=== PATIENT | female | born 1960 | race Caucasian/White ===

== ENCOUNTER 2019-11-02 07:51 | Outpatient (CLI) | payer OTHER, SELFPAY ==
--- NOTE | ~2019-11-02 | US_ITS ---
EXAMINATION: US art doppler w press LE BI DATE: 11/02/2019 08:47 INDICATION: Hypertension and smoking presenting with lower limb neuropathy and foot discoloration. TECHNIQUE: Segmental pressures and plethysmographic and Doppler waveforms of the brachial and lower e xtremity arteries were obtained. COMPARISON: None. FINDINGS: Right and left brachial artery pressures of 104 mm Hg and 104 mm Hg, respectively, are concordant (no rmal difference <= 30 mmHg). The right ankle-brachial index (CLARITA) is 1.20 (normal >= 0.9-1). The right great toe-brachial index (T BI) is 0.66 (normal >= 0.6-0.8). The right lower extremity segmental pressure gradients are normal (n ormal gradients <= 20-30 mmHg between adjacent levels on the same leg or the same levels on the two l egs). Arterial waveforms are triphasic at the right superficial femoral artery and biphasic at the re maining arteries with brisk systolic upstrokes throughout. The left CLARITA is 1.27. The left TBI is 1.12. The left lower extremity segmental pressure gradients are normal. Arterial waveforms are triphasic at the left common femoral and superficial femoral arteries and biphasic in the more distal arteries with brisk systolic upstrokes throughout. IMPRESSION: 1. Normal ABIs and TBIs bilaterally. No significant occlusive disease. Reviewed, dictated and finalized at location A.
== END 2019-11-02 07:52 | disposition home or self-care (01) ==
LOC: ANHIMG 07:58
PROVIDERS: PCP Family Medicine; Visit Provider Family Medicine
DX: R09.89 Other specified symptoms and signs involving the circulatory and respiratory systems (principal)
CPT/HCPCS: 93923

== ENCOUNTER 2021-09-25 00:22 | Day surgery (SDC) | payer OTHER, SELFPAY ==
[2021-09-14 12:18] VITALS: BMI 31.5
[2021-09-25 08:26] VITALS: BP 118/74; PULSE 69; RESP 20; TEMP 35.7; O2SAT 97; BMI 30.5
[2021-09-25] MEDS: LACTATED RINGERS 1,000 ML 150 ML IV CONT (08:42)
--- NOTE | 2021-09-25 08:51 | WPDANESEPPF ---
Anes - Initial Pre Proc Eval Procedure: Operation Date: 09/25/21 09:30 Proposed Procedures p Screening Colonoscopy - Jeovany Olivera MD Date/Time: 09/25/21 08:51 Surgeon: Jeovany Olivera MD Pre Op Diagnosis: neoplasm screening Patient Data Age: 60 Gender: F Height: 1.65 m Weight: 83.3 kg Last Vital Signs Temp 96.3 F L 09/25/21 08:26 Pulse 69 09/25/21 08:26 Resp 20 09/25/21 08:26 BP 118/74 09/25/21 08:26 Pulse Ox 97 09/25/21 08:26 Allergies Allergy/AdvReac Type Severity Reaction Status Date / Time No Known Allergies Allergy Verified 09/25/21 08:25 Home Medications Medication Instructions Recorded Confirmed Type triamterene 75 1 tablet PO DAILY #90 tablet 07/31/21 09/14/21 Rx mg-hydrochlorothiazide 50 mg tablet metoprolol tartrate 100 mg tablet 100 mg PO Q12H #180 tablet 08/02/21 09/14/21 Rx rosuvastatin 20 mg tablet 20 mg PO DAILY #30 tablet 08/31/21 09/14/21 Rx duloxetine 60 mg capsule,delayed 60 mg PO DAILY #30 cap 09/05/21 09/14/21 Rx release cyclobenzaprine 10 mg PO TID 09/14/21 09/14/21 History mv,Ca,min-folic acid-vit K1 1 tablet PO DAILY 09/14/21 09/14/21 History [One-A-Day Women's 50 Plus] gabapentin 300 mg capsule 600 mg PO TID #180 cap 09/18/21 09/25/21 Rx potassium chloride 20 mEq 20 meq PO BID 14 Days #28 tablet 09/21/21 09/25/21 Rx tablet,extended release Patient hx anesthesia problems: none Family hx anesthesia problems: none Results Review: All pre-operative results and documents have been reviewed as part of the pre-operative evaluation. [facility] Past Medical History Medical History (Updated 08/30/21 @ 14:17 by Neal Humphreys NP) BMI 30.0-30.9,adult BMI greater than 30 Bronchitis Cervical spondylosis Decreased pulses in feet Elevated lipids Essential hypertension Lumbar spondylosis with myelopathy Neuropathy Screen for colon cancer Screening for lipid disorders Screening, lipid Family History Family History Father No problems noted. Mother No problems noted. Sibling No problems noted. 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 Informed Consent: The patient's anesthetic plan and its attendant risks and benefits were discussed with the patient/family/POA. Questions were solicited and answers provided to the satisfaction of the patient/family/POA.
--- NOTE | 2021-09-25 08:55 | PM.HPGS ---
History of Present Illness History of Present Illness Consent: Risks, benefits, and alternatives have been discussed and questions answered. Patient agrees to proceed with procedure. Chief complaint: neoplasm screening Narrative: Mima Root is a 60 year old female here for first screening colonoscopy Review of Systems Constitutional: Constitutional: Denies headache(s) and Denies weakness Eyes: Eyes: Denies blurry vision ENT: Reports Normal hearing present, Denies headache(s) and Denies neck pain Cardiovascular: Cardiovascular: Denies chest pain and Denies dyspnea Respiratory: Respiratory: Denies dyspnea Gastrointestinal: Gastrointestinal: Reports no additional gastrointestinal complaints Genitourinary: Genitourinary: Denies dysuria Musculoskeletal: Musculoskeletal: Denies neck pain Integumentary/Breasts: Skin/Breast: Denies dry skin Neurologic: Reports Normal hearing present, Denies headache(s) and Denies weakness Psychiatric: Psychiatric: Denies anxiety Endocrine: Endocrine: Denies change in body appearance Hematologic/Lymphatic: Hematologic/Lymphatic: Denies easy bleeding Allergic/Immunologic: Allergic/Immunologic: Denies urticaria [facility] Past Medical History Medical History (Updated 08/30/21 @ 14:17 by Neal Humphreys NP) BMI 30.0-30.9,adult BMI greater than 30 Bronchitis Cervical spondylosis Decreased pulses in feet Elevated lipids Essential hypertension Lumbar spondylosis with myelopathy Neuropathy Screen for colon cancer Screening for lipid disorders Screening, lipid Family History Family History Father No problems noted. Mother No problems noted. Sibling No problems noted. 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 Gender identity (if verbalized by the patient): Female Spiritual care concerns: No Meds Home Medications and Allergies Home Medications Medication Instructions Recorded Confirmed Type triamterene 75 1 tablet PO DAILY #90 tablet 07/31/21 09/14/21 Rx mg-hydrochlorothiazide 50 mg tablet metoprolol tartrate 100 mg tablet 100 mg PO Q12H #180 tablet 08/02/21 09/14/21 Rx rosuvastatin 20 mg tablet 20 mg PO DAILY #30 tablet 08/31/21 09/14/21 Rx duloxetine 60 mg capsule,delayed 60 mg PO DAILY #30 cap 09/05/21 09/14/21 Rx release cyclobenzaprine 10 mg PO TID 09/14/21 09/14/21 History mv,Ca,min-folic acid-vit K1 1 tablet PO DAILY 09/14/21 09/14/21 History [One-A-Day Women's 50 Plus] gabapentin 300 mg capsule 600 mg PO TID #180 cap 09/18/21 09/25/21 Rx potassium chloride 20 mEq 20 meq PO BID 14 Days #28 tablet 09/21/21 09/25/21 Rx tablet,extended release Allergies Allergy/AdvReac Type Severity Reaction Status Date / Time No Known Allergies Allergy Verified 09/25/21 08:25 Vital Signs Vital Signs - 24 hr 09/25/21 08:26 Temperature 96.3 F L Pulse Rate 69 Respiratory Rate 20 Blood Pressure 118/74 Pulse Oximetry 97 Exam Const: General: comfortable and no acute distress HENMT: General nose exam: Normal nares present Eyes: General: appearance normal, both eyes and all related structures Neck: Neck: no JVD Resp: Auscultation: clear to auscultation bilaterally Cardio: Rate: regular rate Rhythm: regular rhythm GI: Inspection: non-distended GI Palp: Yes Soft to palpation Skin: General skin exam: normal color Neuro: General: gait normal Speech: normal speech Extrem: General: norm
[2021-09-25 09:13] VITALS: BP 116/62; PULSE 62; RESP 21; O2SAT 94
[2021-09-25 09:23] VITALS: BP 107/77; PULSE 62; RESP 24; O2SAT 97
[2021-09-25 09:33] VITALS: BP 120/65; PULSE 59; RESP 21; O2SAT 97
== END 2021-09-25 09:43 | disposition home or self-care (01) ==
PROVIDERS: PCP Family Medicine; Visit Provider Internal Medicine Gastroenterology
PROC: 0DJD8ZZ Inspection of Lower Intestinal Tract, Via Natural or Artificial Opening Endoscopic (ICD-10-PCS; CPT 45378; principal; 2021-09-25 09:30)
DX: Z12.11 Encounter for screening for malignant neoplasm of colon (principal); K57.30 Diverticulosis of large intestine without perforation or abscess without bleeding; K64.8 Other hemorrhoids; K64.4 Residual hemorrhoidal skin tags; I10 Essential (primary) hypertension; E78.5 Hyperlipidemia, unspecified; F17.210 Nicotine dependence, cigarettes, uncomplicated; E66.9 Obesity, unspecified; Z68.30 Body mass index [BMI] 30.0-30.9, adult
CPT/HCPCS: 45378; J2704; J7120

== ENCOUNTER 2023-02-11 11:04 | Outpatient (CLI) | payer OTHER, SELFPAY ==
--- NOTE | ~2023-02-11 | MR_ITS ---
EXAMINATION: MR brain/brain stem wo con DATE: 02/11/2023 12:05 INDICATION: Polyneuropathy, unspecified. TECHNIQUE: Magnetic resonance imaging (MRI) of the brain and brainstem was performed without intraven ous contrast. COMPARISON: None. FINDINGS: The pituitary is enlarged with height of 16 mm. There is a 13 mm mass of increased T2-weigh florecita signal intensity in the pituitary. There are scattered areas of nonspecific increased T2-weighted signal intensity in the cerebral white matter and zeina, which is within normal limits for the patien t's age. There is no acute ischemic infarct or intracranial hemorrhage. The ventricles are normal in size. The orbits are normal. The mastoid air cells are normal. The paranasal sinuses are clear. IMPRESSION: 1. 13 mm pituitary mass. The differential diagnosis includes pituitary macroadenoma, Rathke cleft cys t, and craniopharyngioma. Brain MRI without and with contrast is recommended. Reviewed, dictated and finalized at location E. IMPRESSION: 1. 13 mm pituitary mass. The differential diagnosis includes pituitary macroade noma, Rathke cleft cyst, and craniopharyngioma. Brain MRI without and with cont rast is recommended.
--- NOTE | ~2023-02-11 | MR_ITS ---
EXAMINATION: MR cervical spine wo con DATE: 02/11/2023 12:05 INDICATION: Cervical spondylosis without myelopathy or radiculopathy. TECHNIQUE: Magnetic resonance imaging (MRI) of the cervical spine was performed without intravenous c ontrast. COMPARISON: None FINDINGS: There is kyphosis of cervical spine. Vertebral body heights are normal. There is mildly dec reased disc height at C3-C4, moderately decreased disc height at C4-C5 and C5-C6, and mildly decrease d disc height at C6-C7. The spinal cord signal intensity is normal. The following disc levels are spe cifically discussed: C2-C3: The disc does not extend beyond the endplate margin. There is mild left uncovertebral joint os teoarthritis. There is moderate right and severe left facet joint osteoarthritis. There is mild left neural foraminal stenosis. There is no central canal stenosis. C3-C4: There is a central extrusion. There is mild bilateral uncovertebral joint osteoarthritis. Ther e is moderate right and severe left facet joint osteoarthritis. There is mild bilateral neural forami nal stenosis. There is mild central canal stenosis. C4-C5: The disc is bulging. There is severe bilateral uncovertebral joint osteoarthritis. There is mo derate bilateral facet joint osteoarthritis. There is severe right and mild left neural foraminal raquel nosis. There is moderate central canal stenosis with ventral and dorsal indentation of the spinal cor d. C5-C6: The disc is bulging. There is severe bilateral uncovertebral joint osteoarthritis. There is mo derate right and mild left facet joint osteoarthritis. There is moderate bilateral neural foraminal s tenosis. There is moderate central canal stenosis with ventral and dorsal indentation of the spinal c ord. C6-C7: This is bulging. There is severe bilateral uncovertebral joint osteoarthritis. There is mild b ilateral facet joint osteoarthritis. There is mild bilateral neural foraminal stenosis. There is mild central canal stenosis. C7-T1: The disc does not extend beyond the endplate margin. There is mild left uncovertebral joint os teoarthritis. There is mild right and severe left facet joint osteoarthritis. There is mild left neur al foraminal stenosis. There is no central canal stenosis. IMPRESSION: 1. Severe cervical spondylosis. Reviewed, dictated and finalized at location E.
== END 2023-02-11 11:05 ==
PROVIDERS: PCP Family Medicine; Visit Provider Family Medicine
DX: G62.9 Polyneuropathy, unspecified (principal); M47.812 Spondylosis without myelopathy or radiculopathy, cervical region; R29.818 Other symptoms and signs involving the nervous system; R29.898 Other symptoms and signs involving the musculoskeletal system
CPT/HCPCS: 70551; 72141

== ENCOUNTER 2023-02-19 14:40 | Outpatient (CLI) | payer OTHER, SELFPAY ==
--- NOTE | ~2023-02-19 | MR_ITS ---
MRI of the brain Clinical History: Pituitary mass Technique: Axial and sagittal T1-weighted images were acquired. These were followed by axial T2-weigh florecita, diffusion weighted, gradient, and FLAIR images. Thin cut coronal and sagittal T1-weighted images were performed through the sella turcica. Following intravenous administration of 15 cc MultiHance g adolinium, T1-weighted fat-sat imaging was performed through the brain in the axial plane. Dynamic th in cut T1-weighted postcontrast coronal imaging was performed through the sella turcica. COMPARISON: 02/11/2023 Findings: There is no acute infarct or intracranial hemorrhage. Ventricles and subarachnoid spaces ar e unremarkable. Orbits are unremarkable. Paranasal sinuses and mastoid air cells are clear. Major intracranial flow v oids are intact. There is a 1.5 x 1.4 x 1.6 cm mass centered at the right side of the pituitary gland, with heterogene ous postcontrast enhancement, T2 hyperintensity, and T1 hypointensity. No mass effect upon the optic chiasm. Sagittal midline structures are otherwise unremarkable. IMPRESSION: 1.5 x 1.4 x 1.6 cm pituitary mass, as detailed above, most compatible with pituitary macroadenoma. Reviewed, dictated and finalized at location M. IMPRESSION: 1.5 x 1.4 x 1.6 cm pituitary mass, as detailed above, most compatible with pitu itary macroadenoma.
== END 2023-02-19 14:41 | disposition home or self-care (01) ==
PROVIDERS: PCP Family Medicine; Visit Provider Family Medicine
DX: E23.6 Other disorders of pituitary gland (principal)
CPT/HCPCS: 70553; A9577

== ENCOUNTER 2023-05-15 08:28 | Outpatient (CLI) | payer OTHER, SELFPAY ==
--- NOTE | 2023-05-15 08:40 | ECG_ITS ---
Measurements Intervals [place] Rate: 63 P: 63 LA: 155 QRS: 3 QRSD: 86 T: 25 QT: 399 QTc: 410 Interpretive Statements SINUS RHYTHM ATRIAL PREMATURE COMPLEXES BASELINE ARTIFACT- I, III, AVR, AVL, V6 BORDERLINE ECG NO PREVIOUS ECG AVAILABLE FOR COMPARISON Electronically Signed On 05-15-2023 9:54:26 BOOK JACKET COVER MACHINE OPERATOR by Navjot yS D.O.
[2023-05-15 09:48] LABS: Hematocrit 42.4 % (37.0-47.0); Hemoglobin 13.7 g/dL (12.0-15.0); Mean Corpuscular HGB Conc 32.3 g/dl (32-36); Mean Platelet Volume 10.2 fl (7.4-10.4); Platelet Count Result 327 k/mm3 (150-375); Red Blood Count 4.56 M/mm3 (4.2-5.4); Red Cell Distribution Width 13.7 % (11.5-14.5); White Blood Count 10.4 K/mm3 (4.5-10.0)
[2023-05-15 09:55] LABS: INR 0.9; Prothrombin Time 12.8 Seconds (11.1-14.7)
[2023-05-15 09:56] LABS: Partial Thromboplastin Time 30.9 SECONDS (22.3-36.8)
[2023-05-15 09:59] LABS: Anion Gap 7 mmol/L (8-16); Blood Urea Nitrogen 18 mg/dL (7-17); Calcium 9.3 mg/dL (8.4-10.2); Carbon Dioxide 33 mmol/L (22-30); Chloride 102 mmol/L (98-107); Estimated Glomerular Filt Rate > 60; Glucose 88 mg/dL (65-110); Potassium 3.2 mmol/L (3.4-5.0); Sodium 142 mmol/L (137-145)
[2023-05-15 10:01] LABS: Appearance Urine Cloudy (Clear); Bacteria Urine 2+ /hpf; Bilirubin Urine Negative (Negative); Blood Urine Negative (Negative); Calcium Oxalate Crystals Urine Present /hpf; Color Urine Dark Yellow (Yellow); Glucose Urine UA Negative (Negative); Ketones Urine Negative (Negative); Leukocyte Esterase Ur Negative LEU/UL (Negative); Nitrate Urine Negative (Negative); Non Pathogenic Casts 0-2; Protein Urine Negative (Negative); Squamous Epithelial Cell Urine Few /hpf (Few); Urobilinogen Urine 0.2 mg/dL (<2.0); WBC Urine 0-5 /hpf; pH Urine 5.5 (5.0-9.0)
[2023-05-15 10:07] LABS: RBC Urine 0-2 /hpf (0-2); Specific Grav Ur 1.038 (1.001-1.035)
[2023-05-15 10:08] LABS: Add Urine Microscopic? YES
== END 2023-05-15 08:29 | disposition home or self-care (01) ==
LOC: ANHSURGERY 08:32
PROVIDERS: PCP Family Medicine; Visit Provider Neurological Surgery
DX: M47.812 Spondylosis without myelopathy or radiculopathy, cervical region (principal); I10 Essential (primary) hypertension; Z01.818 Encounter for other preprocedural examination
CPT/HCPCS: 36415; 80048; 81001; 85027; 85610; 85730; 86850; 86900; 86901; 93005

== ENCOUNTER 2023-05-22 01:47 | Day surgery (SDC) | payer OTHER, SELFPAY ==
[2023-05-10 10:19] VITALS: BMI 33.8
--- NOTE | 2023-05-10 10:29 | PC.NURSE ---
Report to the Outpatient Waiting Room, entrance under the green pavilion located off [facility], at time 8:30 on date 05/22/23. Planned Procedure Time: 10:30. Time changes happen often and if your time is changed the preop area will call you the afternoon before. - You and your visitor will be asked to self-screen and do not enter if you have any COVID symptoms. - A mask is optional within the hospital at this time. Patients may have clear liquids (water, carbonated beverages, clear teas, apple juice) until 3 hours prior to surgery (7:30) with a maximum of 20 ounces. - No food from midnight until time of surgery Take the following medications with a SIP of water the morning of surgery: DULOXETINE, METOPROLOL, LYRICA DO NOT STOP ANY OF YOUR OTHER PRESCRIPTION MEDICATIONS PRIOR TO SURGERY ?EXCEPT THE FOLLOWING Medications to discontinue per physician: VITAMINS Date to take last dose: 05/18/23 Please no make-up, nail belizean, hairspray, perfume, deodorant, or body powder the day of surgery. No jewelry (including any body piercings) or valuables the day of surgery, leave them at home. Please take a shower or bath the night before, or the morning of, surgery with an antibacterial soap. Wear comfortable, loose fitting clothing. - Jewelry must be removed prior to entering the operating room. Rings and piercings that are not removed may be cut off. - The hospital will not accept responsibility for valuables. - Please leave all valuables, including medications, at home the day of surgery. If you are going home after surgery, a licensed auto [place]ulaway driver must drive you home. - NO public transportation without another adult if you receive anesthesia. - We recommend that an adult stay with you for 24 hours following discharge. - We also recommend that you do not drive, make important decision, drink alcoholic beverages, or take any drugs that were not prescribed by your health care provider for at least 24 hours after your discharge time. Follow any additional instructions given to you from your surgeon. If you or anyone in your household have experienced Covid symptoms in the past week, please notify your surgeon or the nurse liaison at the phone number below for possible testing. Telephone instructions given to PT - SALAZAR CHAIDEZ and asked if any additional questions and then verbalized understanding. Patient advised to call surgeon office or pre surgery nurse liaison [phone] if any additional questions.
[2023-05-22] VITALS (20 sets, daily range): BP systolic 98–139; BP diastolic 56–90; PULSE 56–86; RESP 12–28; TEMP 35.6–36.4; O2SAT 91–100
--- NOTE | ~2023-05-22 | XR_ITS ---
EXAMINATION: XR fluoroscopy no charge DATE: 05/22/2023 10:30 RAYMOND MILL OPERATOR INDICATION: CERVICAL DISCECTOMY AND FUSION, c4-6 . TECHNIQUE: 2 fluoroscopic images of the cervical spine were obtained during cervical discectomy and f usion C4-C6 performed by the surgeon. I was not present in the operating room. Fluoroscopy exposure t christa was 3.4 seconds. Air Kerma 0.2225 mGy. DAP 0.0044 mGym2. COMPARISON: None FINDINGS: Partially visualized endotracheal tube, terminating in the upper thoracic trachea. ACDF hardware span kira C4-6 with interbody devices at C4-5 and C5-6 that are in good position. IMPRESSION: Fluoroscopic documentation of cervical discectomy and fusion C4-C6. Please refer to the operative not e for complete procedural details . Reviewed, dictated and finalized at location K. OND MILL OPERATOR IMPRESSION: Fluoroscopic documentation of cervical discectomy and fusion C4-C6. Please refe r to the operative note for complete procedural details .
[2023-05-22] MEDS: LACTATED RINGERS 1,000 ML 30 ML IV CONT ×2 (09:20→13:17)
--- NOTE | 2023-05-22 10:14 | WPDHPUPDATE1 ---
History and Physical Update Update Date/Time: 05/22/23 10:14 History and Physical has been reviewed, including an updated exam of the patient. There are NO changes in the patient's condition. Risks, benefits, and alternatives have been discussed and questions answered. Patient agrees to proceed with procedure.
--- NOTE | 2023-05-22 10:15 | WPDANESEPPF ---
Anes - Initial Pre Proc Eval Procedure: Operation Date: 05/22/23 10:30 Proposed Procedures p C4-5, C5-6 Anterior Cervical Discectomy and Fusion - Elis Jerry MD Date/Time: 05/22/23 10:15 Surgeon: Elis Jerry MD Pre Op Diagnosis: cervical myeopathy Patient Data Age: 62 Gender: F Height: 1.6 m Weight: 86.5 kg Last Vital Signs Temp 97.3 F L 05/22/23 08:37 Pulse 86 05/22/23 08:37 Resp 20 05/22/23 08:37 BP 126/73 05/22/23 08:37 Pulse Ox 100 05/22/23 08:37 O2 Del Method Room Air 05/22/23 08:37 Allergies Allergy/AdvReac Type Severity Reaction Status Date / Time No Known Allergies Allergy Verified 05/22/23 08:42 Home Medications Medication Instructions Recorded Confirmed Type hkcjtxhewbjc-vauwotjw-dtgdszo-folic 1 tablet PO DAILY 09/14/21 05/22/23 History acid 400 mcg-vit K1 20 mcg tablet (One-A-Day Women's 50 Plus) mupirocin 2 % topical ointment 1 applic topical DAILY 07/24/22 05/22/23 History metoprolol tartrate 100 mg tablet 100 mg PO Q12H #180 tabs 01/17/23 05/22/23 Rx cyclobenzaprine 10 mg tablet 10 mg PO TID #120 tabs 02/13/23 05/22/23 Rx pregabalin 150 mg capsule 150 mg PO TID #90 caps 03/11/23 05/22/23 Rx duloxetine 60 mg capsule,delayed 60 mg PO DAILY #30 caps 04/26/23 05/22/23 Rx release triamterene 75 See Rx Instructions .Route 05/10/23 05/22/23 Rx mg-hydrochlorothiazide 50 mg tablet .COMPLEX #90 tabs Patient hx anesthesia problems: none Family hx anesthesia problems: none Results Review: All pre-operative results and documents have been reviewed as part of the pre-operative evaluation. [facility] Past Medical History Medical History Bilateral arm weakness BMI 30.0-30.9,adult BMI 34.0-34.9,adult BMI greater than 30 Bronchitis Cervical spondylosis Decreased pulses in feet Elevated lipids Essential hypertension Leg weakness, bilateral Lumbar spondylosis with myelopathy Mass of pituitary Neuropathy Open wound of toe of left foot Overweight with body mass index (BMI) of 28 to 28.9 in adult Progressive neurological deficit Screen for colon cancer Screening for lipid disorders Screening, lipid Family History Family History Father No problems noted. Mother No problems noted. Sibling Cancer Social History Social History Smoking packs per day: 0.5 Smoking cigarettes per day: 10.0 Years smoked: 52 Smoking pack-years: 26.00 Smoking status: Former smoker Tobacco type: cigarettes Second hand tobacco smoke exposure: Yes Alcohol intake: never Substance use: never Substance use type: does not use Do You Feel Safe in your Home?: Yes Lack of Transportation: No Lack of Food: Never True Current Housing: I Have Housing Concerned About Future Housing: No Difficulty Paying Gas/Electric Bills: No Difficulty Paying for Meds: No Currently Unemployed: No Education: High School Diploma/GED Difficulty w/ Childcare or Family Care: No Living arrangements: with family Occupation/Education: occupation 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 Informed Consent: The patient's anesthetic plan and its attendant risks and susi
[2023-05-22] MEDS: ceFAZolin 2 GM/D5W 50 ML 2 GM/50 ML BAG IVPB ×2 (10:43→18:10)
[2023-05-22] MEDS: BUPIVACAINE/EPINEPHRINE 0.5% 50 ML VIAL 30 ML INFILTRATE (11:50)
[2023-05-22] MEDS: HEMOSTATIC MATRIX (SURGIFLO with THROMBIN) KIT 1 KIT XX (11:51)
--- NOTE | 2023-05-22 13:27 | PM.OP ---
Procedure Note - Brief Procedure Note - Brief Date of procedure: 05/22/23 cervical myeopathy Post-op diagnosis: Same Procedure performed: Anterior cervical diskectomy and fusion C4-5 and C5-6 Use of microscope Use of C-arm Surgeon: Elis Jerry MD Dish Machine Operator: Kenji Anesthesia: PREETHI Description of procedure: Successful ACDF at C4-5 and C5-6 without complication Estimated blood loss (mL): 50 Drains: No Packing: No Pathology: None sent Complications: None Condition: Stable Disposition: PACU
--- NOTE | 2023-05-22 13:39 | SUR.PHASEI ---
Addendum entered by Raissa Choudhary RN 05/22/23 13:39: 1335 - dr. nielsen at bedside assessing pt. (not 1135 as prior charted) Original Note: 1135- dr. nielsen at bedside assessing pt
--- NOTE | 2023-05-22 14:50 | W.PM.PROC2 ---
Procedure Note - Detailed Date of Procedure 05/22/23 Pre-op Diagnosis cervical myeopathy Post-op Diagnosis Same Procedure Performed 1. Anterior cervical diskectomy C4-5, C5-6 2. Anterior cervical arthrodesis C4-5, C5-6 with i-Factor 3. Anterior cervical interbody placement at C4-5, C5-6 4. Use of microscope for microsurgical dissection 5. Use of C-arm for fluoroscopy Surgeon Elis Jerry MD Economic Analyst [employer]ji Anesthesia General Indications Ms. Root is a 62-year-old female with history of hypertension who presents with at least 1 year of symptoms concerning for cervical myelopathy including weakness and numbness of her hands, dropping objects, gait and balance problems, and urinary urgency and incontinence.? She was incidentally found to have a pituitary adenoma on workup for the symptoms. ? On physical exam, she is frankly myelopathic with bilateral Peri's reflex and pronounced hyperreflexia lower extremities.? She also ambulates with a cane for stability.? MRI cervical spine shows degenerative disc disease at C4-5 and C5-6 with neuroforaminal stenosis at C4-5 and severe central? and neuroforaminal stenosis at C5-6. Surgery in the form of C4-5 and C5-6 was recommended. Risks including bleeding, pain, infection, weakness, paralysis, stroke, vocal cord damage, coma, and anesthetic risks were discussed. The patient provided written informed consent to proceed. Description of Procedure The patient was taken to the operating room and was transferred to the operating table in the supine position. General anesthesia was induced. Pressure points were appropriately padded, and compression devices were placed on the patient's calves. A shoulder roll was placed. The previous surgical site was marked, and the appropriate level was confirmed with the C-arm XR imaging. The patient was prepped and draped in usual sterile fashion. Perioperative antibiotics were given. Time out was performed. Local anesthesia was injected into the planned incision site. Incision was made with a 10-blade scalpel. The subcutaneous tissue was undermined above the platysma with the Metzenbaum scissors. The platysma was sharply opened horizontally. Bleeding was controlled with the bipolar. The avascular plane to the spine was dissected sharply. The anterior border of the spine was located and exposed with sharp and blunt dissection. A spinal needle was used to localize the C4-5 disc space; this was confirmed on fluoroscopy. The longus coli muscles were elevated bilaterally with a bovie. Once the C4, C5, and C6 vertebral bodies and adjacent intervertebral discs were adequately exposed, self-retaining retractors were placed. [place] pins were placed in the C4 and C6 vertebral bodies and were distracted. A 15-blade scalpel was used to incise the C4-5 disc. A combination of Kerrisons, currettes, and pituitary instruments were used to remove each disc. The microscope was draped and brought into the surgical field. The removal of disc and osteophytes were completed using a high-speed drill, multiple Kerrison punches, and currettes. The posterior longitudinal ligament was opened with a nerve hook and kerrison rongeurs until the neuroforamen bilaterally were adequately decompressed. Interbody trial instruments were used to determine the appropriate size for the prosthetic vertebral interbody cage. Hemostasis was achieved in the disc space with surgiflo and cottonoid patties. This process was repeated at the C5-6 disc. The disc was removed as described above, and the posterior longitudinal ligament was opened until the neuroforamen bilaterally were adequately decompressed. Interbody trial instruments were used to determine the appropriate size for the prosthetic vertebral interbody cage. Hemostasis was achieved in the disc space. A 5mm implant was filled with i-Factor and placed at both the C4-5 and C5-6 levels. The cages were covered with bone wax to prevent the egress of i-Factor. Appropriate placement
--- NOTE | 2023-05-22 15:25 | ADMGEN ---
This patient, Mima Root, was admitted to Medical Room 240-01. Patient/family oriented to hospital policies and general routines including ID bracelet, bed and alarms, visiting hours, pain management, procedures, bathroom and other care routines, personal items, smoking policy, room service/diet, and visiting hours. Information on how to activate the Rapid Response Team has been discussed. Patient/Family are encouraged to report perceived risks to care and to ask questions if they do not understand what they are told or what they should do.
[2023-05-22] MEDS: oxyCODONE HCL (*CRX) 5 MG TAB IR 10 MG PO (15:59)
[2023-05-22] MEDS: PREGABALIN (*CRX) 75 MG CAPSULE 150 MG PO (18:09)
[2023-05-22] MEDS: ACETAMINOPHEN 500 MG TABLET 1000 MG PO (18:09)
[2023-05-22] MEDS: CYCLOBENZAPRINE HCL 10 MG TABLET PO (18:17)
[2023-05-22] MEDS: METOPROLOL TARTRATE 50 MG TAB 100 MG PO (20:08)
[2023-05-22] MEDS: oxyCODONE HCL (*CRX) 5 MG TAB IR PO (20:08)
[2023-05-22] MEDS: DOCUSATE SODIUM 100 MG CAPSULE PO (20:08)
[2023-05-23] MEDS: ACETAMINOPHEN 500 MG TABLET 1000 MG PO ×3 (00:09→11:33)
[2023-05-23] MEDS: ceFAZolin 2 GM/D5W 50 ML 2 GM/50 ML BAG IVPB ×2 (02:21→11:34)
[2023-05-23] MEDS: oxyCODONE HCL (*CRX) 5 MG TAB IR PO ×3 (02:24→17:04)
[2023-05-23] MEDS: CYCLOBENZAPRINE HCL 10 MG TABLET PO (03:41)
[2023-05-23 03:59] VITALS: BP 136/70; PULSE 56; RESP 19; TEMP 36.5; O2SAT 99
[2023-05-23] MEDS: oxyCODONE HCL (*CRX) 5 MG TAB IR 10 MG PO (04:54)
[2023-05-23 08:47] VITALS: O2SAT 93
--- NOTE | 2023-05-23 08:59 | WPDANESPN ---
Anes - Prog Note Post-Op Date/Time: 05/23/23 08:59 Cardiovascular status: normal Respiratory status: normal Airway patency: baseline Mental status: baseline Post-Op hydration status: normal Vital Signs: Last Vital Signs Temp 36.5 C 05/23/23 03:59 Pulse 56 L 05/23/23 03:59 Resp 19 05/23/23 03:59 BP 136/70 05/23/23 03:59 Pulse Ox 93 05/23/23 08:47 O2 Del Method Room Air 05/23/23 08:47 O2 Flow Rate 1 05/22/23 21:43 Pain Score (VAS): 07/20 I/O: Intake & Output 05/22/23 05/23/23 05/23/23 23:59 07:59 15:59 Intake Total 290 50 Balance 290 50 Post-procedural complaints: none Patient Feedback: Patient satisfied with anesthetic care.
[2023-05-23 09:00] VITALS: BP 138/106; PULSE 59; RESP 12; TEMP 36.6; O2SAT 100
[2023-05-23] MEDS: PREGABALIN (*CRX) 75 MG CAPSULE 150 MG PO ×3 (09:01→17:04)
[2023-05-23] MEDS: TRIAMTERENE 37.5 MG/HCTZ 25 MG (MAXZIDE) TABLET 2 TAB PO (09:01)
[2023-05-23 09:02] VITALS: PULSE 59
[2023-05-23] MEDS: DULoxetine HCL 60 MG CAPSULE.DR PO (09:02)
[2023-05-23] MEDS: METOPROLOL TARTRATE 50 MG TAB 100 MG PO (09:02)
[2023-05-23] MEDS: DOCUSATE SODIUM 100 MG CAPSULE PO (09:02)
[2023-05-23 15:46] VITALS: BP 115/54; PULSE 67; RESP 18; TEMP 37.1; O2SAT 99
--- NOTE | 2023-05-23 16:21 | WPDNEUROSGPN ---
Progress Note: A&P Assessment and Plan (1) Status post cervical arthrodesis: Code(s): Z98.1 - Arthrodesis status Status: Acute Plan s/p ACDF C4-5, C5-6 on 05/22 Plan: -Discharge home this evening -Wound care and restrictions reviewed -Follow up with me in clinic in about 2 weeks Subjective Date/time seen: 05/23/23 16:21 Interval history: Overall doing well with tolerable amount of pain at the base of the neck. Swallowing without difficulty. Ambulated with therapy. Voiding independently. Feels ready go to home tonight Review of Systems Review of Systems: All systems reviewed & are unremarkable except as noted in HPI and below Exam Narrative: AOx4 Surgical incision c/d/i with dermabond in place Full strength in all extremities Sensation intact to light touch Objective Data Vital Signs Vital Signs: Vital Signs - 24 hr 05/22/23 16:28 05/22/23 17:22 05/22/23 16:45 Temperature 96.5 F L Pulse Rate 66 Respiratory Rate 24 H 26 H Blood Pressure 122/86 Pulse Oximetry 98 98 98 Oxygen Delivery Nasal Cannula Nasal Cannula Oxygen Flow Rate 1 1 05/22/23 20:08 05/22/23 21:43 05/22/23 20:21 Temperature 97.5 F L Pulse Rate 72 84 Respiratory Rate 19 Blood Pressure 100/68 Pulse Oximetry 93 93 Oxygen Delivery Nasal Cannula Oxygen Flow Rate 1 05/22/23 23:46 05/23/23 03:59 05/23/23 08:47 Temperature 97.0 F L 97.7 F Pulse Rate 66 56 L Respiratory Rate 19 19 Blood Pressure 98/56 L 136/70 Pulse Oximetry 91 99 93 Oxygen Delivery Room Air Oxygen Flow Rate 05/23/23 09:02 05/23/23 09:00 05/23/23 09:00 Temperature 98 F Pulse Rate 59 L 59 L Respiratory Rate 12 Blood Pressure 138/106 H Pulse Oximetry 100 Oxygen Delivery Room Air Oxygen Flow Rate 05/23/23 10:43 05/23/23 15:46 Temperature 98.7 F Pulse Rate 67 Respiratory Rate 18 Blood Pressure 115/54 L Pulse Oximetry 99 Oxygen Delivery Room Air Oxygen Flow Rate Intake/Output Intake/Output: Intake & Output 05/20/23 05/21/23 05/22/23 05/23/23 23:59 23:59 23:59 23:59 Intake Total 540 390 Balance 540 390 Meds/Results Medications: Active Medications Generic Name Dose Route Start Last Admin Trade Name Freq PRN Reason Stop Dose Admin Acetaminophen 1,000 mg 05/22/23 18:00 05/23/23 11:33 Acetaminophen 500 Mg Tablet PO 1,000 mg Q6H ROXANNE Administration Al Hydrox/Mg Hydrox/Simethicone 20 ml 05/22/23 13:21 Mag Hydrox/Al Hydrox/Simeth 30 Ml Udc PO Q4H PRN Indigestion/Heartburn Bisacodyl 10 mg 05/22/23 13:21 Bisacodyl 10 Mg Suppository RECTAL DAILY PRN Constipation Cyclobenzaprine HCl 10 mg 05/22/23 13:22 05/23/23 03:41 Cyclobenzaprine Hcl 10 Mg Tablet PO 10 mg TID PRN Administration Muscle Spasms Docusate Sodium 100 mg 05/22/23 21:00 05/23/23 09:02 Docusate Sodium 100 Mg Capsule PO 100 mg Q12HR ROXANNE Administration Duloxetine HCl 60 mg 05/23/23 09:00 05/23/23 09:02 Duloxetine Hcl 60 Mg Capsule.Dr PO 60 mg DAILY ROXANNE Administration Cefazolin Sodium 2 gm in 50 mls @ 100 mls/hr 05/22/23 19:00 05/23/23 11:34 Ancef 2 Gm/D5w 50 Ml IVPB 05/23/23 18:59 100 mls/hr Q8H ROXANNE Administration Metoprolol Tartrate 100 mg 05/22/23 21:00 05/23/23 09:02 Metoprolol Tartrate 50 Mg Tab PO 100 mg Q12HR ROXANNE Administration Ondansetron HCl 4 mg 05/22/23 13:21 Ondansetron Inj 4 Mg/2 Ml Vial IV PUSH Q8H PRN Nausea And Vomiting Oxycodone HCl 10 mg 05/22/23 13:22 05/23/23 04:54 Oxycodone Hcl (*Crx) 5 Mg Tab Ir PO 10 mg Q6H PRN Administration Pain Rated 7-10 Oxycodone HCl 5 mg 05/22/23 13:22 05/23/23 11:34 Oxycodone Hcl (*Crx) 5 Mg Tab Ir PO 5 mg Q6H PRN Administration Pain Rated 4-6 Pregabalin 150 mg 05/22/23 17:00 05/23/23 12:20 Pregabalin (*Crx) 75 Mg Capsule PO 150 mg TID ROXANNE Administration Senna/Docusate Sodium 1 tab 05/22/23 13
== END 2023-05-23 17:35 | disposition home or self-care (01) ==
LOC: ANHSURGERY 08:27 → ANH2MED 15:10
PROVIDERS: PCP Family Medicine; Visit Provider Neurological Surgery
PROC: (CPT 63030; principal; 2023-05-22 10:30)
DX: M48.02 Spinal stenosis, cervical region (principal); M50.021 Cervical disc disorder at C4-C5 level with myelopathy; M50.022 Cervical disc disorder at C5-C6 level with myelopathy; E23.6 Other disorders of pituitary gland; I10 Essential (primary) hypertension; E78.5 Hyperlipidemia, unspecified; M47.816 Spondylosis without myelopathy or radiculopathy, lumbar region; E66.9 Obesity, unspecified; Z68.33 Body mass index [BMI] 33.0-33.9, adult; F17.210 Nicotine dependence, cigarettes, uncomplicated
CPT/HCPCS: 22551; 22552; 22853 ×2; 36415; 80048; 81001; 85027; 85610; 85730; 86850; 86900; 86901; 93005; 97161; 97165; 97535; 99199; A9270; C1713; J0690; J1100; J1170; J2250; J2405; J2704; J3010; J7120

== ENCOUNTER 2023-05-26 03:49 | Observation (INO) | payer OTHER, SELFPAY ==
[2023-05-26] VITALS (10 sets, daily range): BP systolic 100–152; BP diastolic 58–91; PULSE 60–92; RESP 14–18; TEMP 36.3–36.6; O2SAT 92–100
--- NOTE | 2023-05-26 04:11 | ED.GENADULT ---
HPI - General Adult General Chief complaint: Neck Pain/Injury Stated complaint: pain to neck and back/post surgical Time Seen by Provider: 05/26/23 03:55 History of Present Illness HPI narrative: This is a 62-year-old female on pod 3 for an Anterior cervical diskectomy and fusion C4-5 and C5-[address] Jc. She started to have postop pain in her neck and went to [facility] for evaluation. That time she was accepted for direct admission by Dr. Hall. the Patient and her family refused to go by ambulance and then were made to leave A by [facility] as they came via private vehicle. The patient is in the emergency department essentially to be registered and then admitted. At this time the patient is complaining of pain at the base of her neck and between her shoulder blades. No fever, chills, chest pain, difficulty breathing, lower extremity edema, or urinary symptoms. She has been able ambulate with a cane. Patient notes some difficulty swallowing but she has been able to swallow water and her medications. Related Data Home Medications Medication Instructions Recorded Confirmed ahodkzxpihyv-zlxewvim-ldhdarp-folic 1 tablet PO DAILY 09/14/21 05/22/23 acid 400 mcg-vit K1 20 mcg tablet (One-A-Day Women's 50 Plus) mupirocin 2 % topical ointment 1 applic topical DAILY 07/24/22 05/22/23 Allergies Allergy/AdvReac Type Severity Reaction Status Date / Time No Known Allergies Allergy Verified 05/26/23 04:22 [facility] Past Medical History Medical History Bilateral arm weakness BMI 30.0-30.9,adult BMI 34.0-34.9,adult BMI greater than 30 Bronchitis Cervical spondylosis Decreased pulses in feet Elevated lipids Essential hypertension Leg weakness, bilateral Lumbar spondylosis with myelopathy Mass of pituitary Neuropathy Open wound of toe of left foot Overweight with body mass index (BMI) of 28 to 28.9 in adult Progressive neurological deficit Screen for colon cancer Screening for lipid disorders Screening, lipid Family History Family History Father No problems noted. Mother No problems noted. Sibling Cancer Social History Social History Smoking packs per day: 0.5 Smoking cigarettes per day: 10.0 Years smoked: 50 Smoking pack-years: 25.00 Smoking status: Current every day smoker Tobacco type: cigarettes Second hand tobacco smoke exposure: Yes Alcohol intake: never Substance use: never Substance use type: does not use Do You Feel Safe in your Home?: Yes Lack of Transportation: No Lack of Food: Never True Current Housing: I Have Housing Concerned About Future Housing: No Difficulty Paying Gas/Electric Bills: YES Difficulty Paying for Meds: No Currently Unemployed: No Education: High School Diploma/GED Difficulty w/ Childcare or Family Care: No Living arrangements: with family Occupation/Education: occupation 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 Head: atraumatic. EYES: EOMI, NOSE: Atraumatic NECK: surgical scar over the right anterior neck. No erythema or induration. No significant fluid collection. Tenderness to palpation over C6-C7 RESPIRATORY: No increased rate of breathing, CT be CARDIOVASCULAR: RRR, ABDOMINAL: Non-distended MUSCULOSKELETAl: No obvious deformities NEURO: Alert. Cranial nerves 2-12 grossly intact. Sensation light touch, motor function intact 4/4 extremities. Patient ambulating with a cane SKIN:: Warm, dry. Normal color PSYCHIATRIC: Normal affect Course Vital Signs Vital signs: Vital Signs Temperature 97.8 F 05/26/23 03:51
[2023-05-26 04:48] LABS: Basophils Absolute Auto 0.1 K/mm3 (0.0-0.1); Basophils Percent Auto 0.5 % (0.2-1.2); Eosinophils Absolute Auto 0.1 K/mm3 (0-0.3); Hematocrit 42.5 % (37.0-47.0); Hemoglobin 13.9 g/dL (12.0-15.0); Immature Granulocyte Absolute 0.06 K/mm3 (0.00-0.031); Immature Granulocyte Percent A 0.4 % (0-0.5); Immature Platelet Fraction Pct 4.4 % (0.9-11.2); Lymphocytes Absolute Auto 2.65 K/mm3 (0.9-3.2); Lymphocytes Percent Auto 19.2 % (18.3-44.2); Mean Corpuscular HGB Conc 32.7 g/dl (32-36); Mean Corpuscular Hemoglobin 30.3 pg (26-34); Mean Corpuscular Volume 92.6 fl (80-100); Mean Platelet Volume 10.4 fl (7.4-10.4); Monocytes Percent Auto 7.5 % (2.6-8.5); Neutrophils Absolute Auto 9.9 K/mm3 (1.3-6.7); Neutrophils Percent Auto 71.4 % (45.5-73.1); Platelet Count Result 309 k/mm3 (150-375); Red Blood Count 4.59 M/mm3 (4.2-5.4); Red Cell Distribution Width 13.3 % (11.5-14.5); White Blood Count 13.8 K/mm3 (4.5-10.0)
[2023-05-26] MEDS: HYDROmorphone HCL INJ (*CRX) 1 MG/ML SYR 0.5 MG IV PUSH (04:55)
[2023-05-26 06:28] LABS: Anion Gap 4 mmol/L (8-16); Blood Urea Nitrogen 15 mg/dL (7-17); Calcium 9.3 mg/dL (8.4-10.2); Carbon Dioxide 32 mmol/L (22-30); Chloride 102 mmol/L (98-107); Estimated CRCL calculation 91 ml/min; Estimated Glomerular Filt Rate > 60; Glucose 113 mg/dL (65-110); Potassium 3.3 mmol/L (3.4-5.0); Sodium 138 mmol/L (137-145)
[2023-05-26] MEDS: CYCLOBENZAPRINE HCL 10 MG TABLET PO ×2 (07:01→14:51)
[2023-05-26] MEDS: MORPHINE SULFATE (*CRX) 2 MG/ML INJ IV PUSH ×2 (10:26→14:51)
[2023-05-26] MEDS: HYDROcodone/acetaminophen (*CRX) 5-325 MG TABLET 2 TAB PO ×3 (11:17→20:43)
--- NOTE | 2023-05-26 16:05 | WPDNEUROSGCN ---
Assessment and Plan Assessment and plan (1) Status post cervical arthrodesis: Code(s): Z98.1 - Arthrodesis status Status: Acute Assessment and Plan: Mima is a 62-year-old female with neck pain in the typical locations after anterior cervical diskectomy and fusion at C4-5 and C5-6. She has no new neurologic issues and is ambulatory. We will try to control her pain. We have already put her on IV pain medication. We will change her muscle relaxant to Valium. I will keep her by mouth pain medicine as hydrocodone. Will make adjustments as necessary until she is she use adequate pain control. Consult date: 05/26/23 Reason for consult: Neck and interscapular pain status post C4-5 and C5-6 anterior cervical diskectomy and fusion. HPI: Mima Root is a 62 year old female who is status post C4-5 and C5-6 anterior cervical diskectomy and fusion done for cervical stenosis causing myelopathy. This was performed 4 days ago. I spoke with her through the exchange yesterday about increased pain in her neck radiating between her shoulder blades and into her shoulders. Her pain medications were adjusted. She was also having hallucinations and some aggressive personality changes. She was changed from oxycodone to hydrocodone and her muscle relaxant was changed to Robaxin. Because of the personality changes and the continued pain she was brought to the emergency room at [facility] and then transferred to [facility] for admission and further evaluation and treatment. She does not report any new issues in any of her extremities. She has been ambulatory. She does not have weakness or numbness of her extremities that is new. She has a pain in the aforementioned area which is debilitating and refractory to the by mouth pain medication and muscle relaxants. She has not worsened neurologically in any way since the surgery. She is not having bowel or bladder difficulty other than constipation which is troubling for her. She is admitted for pain control and evaluation. Review of Systems Review of Systems: Patient denies shortness of breath, cough, fever, chills, nausea, vomiting, weight loss, weight gain, chest pain, dysuria. She has neck and interscapular and shoulder pain as above. She is status post C4-5 and C5-6 anterior cervical diskectomy and fusion. Review of systems is otherwise negative except as noted elsewhere. [facility] Past Medical History Medical History Bilateral arm weakness BMI 30.0-30.9,adult BMI 34.0-34.9,adult BMI greater than 30 Bronchitis Cervical spondylosis Decreased pulses in feet Elevated lipids Essential hypertension Leg weakness, bilateral Lumbar spondylosis with myelopathy Mass of pituitary Neuropathy Open wound of toe of left foot Overweight with body mass index (BMI) of 28 to 28.9 in adult Progressive neurological deficit Screen for colon cancer Screening for lipid disorders Screening, lipid Family History Family History Father No problems noted. Mother No problems noted. Sibling Cancer Social History Social History Smoking packs per day: 0.5 Smoking cigarettes per day: 10.0 Years smoked: 50 Smoking pack-years: 25.00 Smoking status: Current every day smoker Second hand tobacco smoke exposure: Yes Alcohol intake: never Substance use: never Substance use type: does not use Do You Feel Safe in your Home?: Yes Lack of Transportation: No Lack of Food: Never True Current Housing: I Have Housing Concerned About Future Housing: No Difficulty Paying Gas/Electric Bills: YES Difficulty Paying for Meds: No Currently Unemployed: No Education: High School Diploma/GED Difficulty w/ Childcare or Family Care: No Living arrangements: with family Occup
[2023-05-26] MEDS: SENNA/DOCUSATE SODIUM TABLET 2 TAB PO (16:24)
[2023-05-26] MEDS: MAGNESIUM CITRATE 300 ML BTL PO (16:25)
[2023-05-26] MEDS: polyethylene glycoL 3350 17 GM POWD.PACK PO (16:25)
[2023-05-26] MEDS: diazePAM (*CRX) 5 MG TABLET PO (16:41)
[2023-05-26] MEDS: PREGABALIN (*CRX) 75 MG CAPSULE 150 MG PO (16:41)
[2023-05-26] MEDS: METOPROLOL TARTRATE 50 MG TAB 100 MG PO (20:43)
[2023-05-27] MEDS: HYDROcodone/acetaminophen (*CRX) 5-325 MG TABLET 2 TAB PO ×4 (01:37→15:12)
[2023-05-27] MEDS: diazePAM (*CRX) 5 MG TABLET PO ×3 (01:37→18:36)
[2023-05-27] MEDS: MORPHINE SULFATE (*CRX) 2 MG/ML INJ IV PUSH (04:41)
[2023-05-27 06:00] VITALS: BP 118/71; PULSE 60; RESP 14; TEMP 36.3; O2SAT 98
[2023-05-27 08:40] VITALS: BP 118/80; PULSE 60; O2SAT 95
[2023-05-27] MEDS: PREGABALIN (*CRX) 75 MG CAPSULE 150 MG PO ×3 (08:42→16:58)
[2023-05-27 08:43] VITALS: PULSE 60
[2023-05-27] MEDS: DULoxetine HCL 60 MG CAPSULE.DR PO (08:43)
[2023-05-27] MEDS: METOPROLOL TARTRATE 50 MG TAB 100 MG PO ×2 (08:43→20:17)
[2023-05-27] MEDS: SENNA/DOCUSATE SODIUM TABLET 2 TAB PO ×2 (08:43→16:59)
[2023-05-27] MEDS: polyethylene glycoL 3350 17 GM POWD.PACK PO ×2 (08:44→16:59)
[2023-05-27] MEDS: TRIAMTERENE 37.5 MG/HCTZ 25 MG (MAXZIDE) TABLET 2 TAB PO (08:46)
[2023-05-27 14:00] VITALS: BP 103/68; PULSE 62; RESP 18; TEMP 36.4; O2SAT 94
--- NOTE | 2023-05-27 18:01 | WPDNEUROSGPN ---
Progress Note: A&P Assessment and Plan (1) Status post cervical arthrodesis: Code(s): Z98.1 - Arthrodesis status Status: Acute (2) Post-op pain: Code(s): G89.18 - Other acute postprocedural pain Status: Acute Plan s/p ACDF C4-5, C5-6 on May 22, readmitted with uncontrolled pain Plan: -Stop IV pain medication -Change oral meds to scheduled tylenol, oxycodone q4h as needed -Change valium to scheduled -Start DVT ppx -Mobilize in halls TID -Anticipate discharge home tomorrow if pain is better controlled overnight tonight Subjective Date/time seen: 05/27/23 18:01 Interval history: Pain is somewhat better controlled this evening, mostly located at the base of the neck radiating across the shoulders. Swallowing is improved today, and she is able to eat solid foods without difficulty. She has been walking in the halls. Review of Systems Review of Systems: All systems reviewed & are unremarkable except as noted in HPI and below Exam Narrative: Right-sided anterior neck incision c/d/i with dermabond in place Full strength in all extremities Sensation intact to light touch Mild paraspinal/trapezius muscle tenderness Objective Data Vital Signs Vital Signs: Vital Signs - 24 hr 05/26/23 20:43 05/26/23 21:57 05/26/23 20:00 Temperature 97.4 F L Pulse Rate 66 64 Respiratory Rate 14 Blood Pressure 115/68 Pulse Oximetry 96 Oxygen Delivery Room Air 05/27/23 06:00 05/27/23 08:39 05/27/23 08:40 Temperature 97.3 F L Pulse Rate 60 60 Respiratory Rate 14 Blood Pressure 118/71 118/80 Pulse Oximetry 98 95 Oxygen Delivery Room Air 05/27/23 08:43 05/27/23 08:40 05/27/23 14:00 Temperature 97.6 F Pulse Rate 60 62 Respiratory Rate 18 Blood Pressure 103/68 Pulse Oximetry 94 Oxygen Delivery Room Air Intake/Output Intake/Output: Intake & Output 05/24/23 05/25/23 05/26/23 05/27/23 23:59 23:59 23:59 23:59 Intake Total 240 240 Output Total 500 Balance -260 240 Meds/Results Medications: Active Medications Generic Name Dose Route Start Last Admin Trade Name Freq PRN Reason Stop Dose Admin Hydrocodone Bitart/Acetaminophen 1 tab 05/26/23 04:26 Hydrocodone/Acetaminophen (*Crx) 5-325 Mg Tablet PO Q4H PRN Pain Rated 1-3 Hydrocodone Bitart/Acetaminophen 2 tab 05/26/23 04:26 05/27/23 15:12 Hydrocodone/Acetaminophen (*Crx) 5-325 Mg Tablet PO 2 tab Q4H PRN Administration Pain Rated 4-6 Diazepam 5 mg 05/26/23 16:22 05/27/23 10:35 Diazepam (*Crx) 5 Mg Tablet PO 5 mg Q8H PRN Administration Muscle Spasm Dicyclomine HCl 20 mg 05/26/23 04:26 Dicyclomine Hcl Inj 20 Mg/2 Ml Vial IM Q6H PRN Abdominal Cramping Duloxetine HCl 60 mg 05/27/23 09:00 05/27/23 08:43 Duloxetine Hcl 60 Mg Capsule.Dr PO 60 mg DAILY ROXANNE Administration Metoprolol Tartrate 100 mg 05/26/23 21:00 05/27/23 08:43 Metoprolol Tartrate 50 Mg Tab PO 100 mg Q12HR ROXANNE Administration Morphine Sulfate 2 mg 05/26/23 04:26 05/27/23 04:41 Morphine Sulfate (*Crx) 2 Mg/Ml Inj IV PUSH 2 mg Q2H PRN Administration Pain Rated 7-10 Mupirocin 1 applic 05/26/23 16:25 Mupirocin 2% Oint 22 Gm Tube TOPICAL DAILY PRN 2nd toe Ondansetron HCl 4 mg 05/26/23 04:26 Ondansetron Inj 4 Mg/2 Ml Vial IV PUSH Q4H PRN Nausea Polyethylene Glycol 17 gm 05/26/23 17:00 05/27/23 16:59 Polyethylene Glycol 3350 17 Gm Powd.Pack PO 17 gm BID ROXANNE Administration Pregabalin 150 mg 05/26/23 17:00 05/27/23 16:58 Pregabalin (*Crx) 75 Mg Capsule PO 150 mg TID ROXANNE Administration Senna/Docusate Sodium 2 tab 05/26/23 17:00 05/27/23 16:59 Senna/Docusate Sodium Tablet PO 2 tab BID ROXANNE Administration Triamterene/Hydrochlorothiazide 2 tab 05/27/23 09:00 05/27/23 08:46 Triamterene 37.5 Mg/Hctz 25 Mg (Maxzide) Tablet PO 2 tab QAM ROXANNE Administration
[2023-05-27] MEDS: ACETAMINOPHEN 500 MG TABLET 1000 MG PO ×2 (18:36→23:53)
[2023-05-27] MEDS: oxyCODONE HCL (*CRX) 5 MG TAB IR 10 MG PO ×2 (18:37→23:01)
[2023-05-27 20:17] VITALS: PULSE 68
[2023-05-27 20:56] VITALS: BP 112/69; PULSE 65; RESP 14; TEMP 36.6; O2SAT 100
[2023-05-28] VITALS (7 sets, daily range): BP systolic 101–134; BP diastolic 52–90; PULSE 60–75; RESP 13–18; TEMP 36.4–37.6; O2SAT 94–97
[2023-05-28] MEDS: diazePAM (*CRX) 5 MG TABLET PO ×3 (02:33→17:00)
[2023-05-28] MEDS: oxyCODONE HCL (*CRX) 5 MG TAB IR 10 MG PO ×2 (02:55→06:57)
[2023-05-28] MEDS: ACETAMINOPHEN 500 MG TABLET 1000 MG PO ×2 (05:47→11:00)
[2023-05-28] MEDS: SENNA/DOCUSATE SODIUM TABLET 2 TAB PO ×2 (09:47→16:56)
[2023-05-28] MEDS: oxyCODONE HCL (*CRX) 5 MG TAB IR PO (09:51)
[2023-05-28] MEDS: DULoxetine HCL 60 MG CAPSULE.DR PO (09:52)
[2023-05-28] MEDS: METOPROLOL TARTRATE 50 MG TAB 100 MG PO ×2 (09:52→22:32)
[2023-05-28] MEDS: TRIAMTERENE 37.5 MG/HCTZ 25 MG (MAXZIDE) TABLET 2 TAB PO (09:53)
[2023-05-28] MEDS: PREGABALIN (*CRX) 75 MG CAPSULE 150 MG PO ×3 (09:53→16:56)
[2023-05-28] MEDS: ENOXAPARIN 40 MG/0.4 ML SYRINGE SUB-Q (09:54)
[2023-05-28] MEDS: methocarbamoL 500 MG TABLET 1000 MG PO (12:23)
[2023-05-28] MEDS: LIDOCAINE 5% PATCH 1 PATCH TRANSDERM (13:49)
[2023-05-28] MEDS: HYDROcodone/acetaminophen (*CRX) 5-325 MG TABLET 1 TAB PO ×2 (13:51→19:55)
[2023-05-28] MEDS: HYDROcodone/acetaminophen (*CRX) 10-325 MG TABLET 1 TAB PO ×2 (16:56→22:32)
--- NOTE | 2023-05-28 23:22 | WPDNEUROSGPN ---
Progress Note: A&P Assessment and Plan (1) Status post cervical arthrodesis: Code(s): Z98.1 - Arthrodesis status Status: Acute Assessment and Plan: Mima is doing well. If she continues to do well and is not taking IV pain medication and is eating well she may be discharged in the morning. Subjective Date/time seen: 05/28/23 23:22 Interval history: Mima is doing relatively well today. She still occasionally takes IV pain medication. Her swallowing is improving. She has not having new neurologic issues in her upper extremities. Her discomfort is in the neck radiating into the trapezius muscle. Exam Narrative: Strength is normal the bilateral upper extremities to direct confrontation. Sensation is intact to light touch throughout the upper extremities. Her wound is clean, dry and intact. Objective Data Vital Signs Vital Signs: Vital Signs - 24 hr 05/28/23 05:30 05/28/23 09:47 05/28/23 09:52 Temperature 98.0 F Pulse Rate 65 60 60 Respiratory Rate 13 Blood Pressure 101/52 L 134/89 Pulse Oximetry 94 05/28/23 14:00 05/28/23 21:32 05/28/23 22:32 Temperature 97.5 F L 99.6 F Pulse Rate 73 73 75 Respiratory Rate 18 13 Blood Pressure 123/90 117/75 Pulse Oximetry 94 97 Intake/Output Intake/Output: Intake & Output 05/25/23 05/26/23 05/27/23 05/28/23 23:59 23:59 23:59 23:59 Intake Total 745 268 0107 Output Total 500 200 Balance -701 115 3342 Meds/Results Medications: Active Medications Generic Name Dose Route Start Last Admin Trade Name Freq PRN Reason Stop Dose Admin Acetaminophen 650 mg 05/28/23 13:09 Acetaminophen 325 Mg Tablet PO Q6H PRN Pain Rated 1-3 Hydrocodone Bitart/Acetaminophen 1 tab 05/28/23 13:09 05/28/23 19:55 Hydrocodone/Acetaminophen (*Crx) 5-325 Mg Tablet PO 1 tab Q4H PRN Administration Pain Rated 4-6 Hydrocodone Bitart/Acetaminophen 1 tab 05/28/23 13:09 05/28/23 22:32 Hydrocodone/Acetaminophen (*Crx) 10-325 Mg Tablet PO 1 tab Q4H PRN Administration Pain Rated 7-10 Diazepam 5 mg 05/27/23 18:00 05/28/23 17:00 Diazepam (*Crx) 5 Mg Tablet PO 5 mg Q8H ROXANNE Administration Dicyclomine HCl 20 mg 05/26/23 04:26 Dicyclomine Hcl Inj 20 Mg/2 Ml Vial IM Q6H PRN Abdominal Cramping Duloxetine HCl 60 mg 05/27/23 09:00 05/28/23 09:52 Duloxetine Hcl 60 Mg Capsule.Dr PO 60 mg DAILY ROXANNE Administration Enoxaparin Sodium 40 mg 05/28/23 09:00 05/28/23 09:54 Enoxaparin 40 Mg/0.4 Ml Syringe SUB-Q 40 mg DAILY ROXANNE Administration Lidocaine 1 patch 05/29/23 09:00 Lidocaine 5% Patch TRANSDERM DAILY [facility] Metoprolol Tartrate 100 mg 05/26/23 21:00 05/28/23 22:32 Metoprolol Tartrate 50 Mg Tab PO 100 mg Q12HR ROXANNE Administration Mupirocin 1 applic 05/26/23 16:25 Mupirocin 2% Oint 22 Gm Tube TOPICAL DAILY PRN 2nd toe Ondansetron HCl 4 mg 05/26/23 04:26 Ondansetron Inj 4 Mg/2 Ml Vial IV PUSH Q4H PRN Nausea Polyethylene Glycol 17 gm 05/26/23 17:00 05/28/23 16:50 Polyethylene Glycol 3350 17 Gm Powd.Pack PO Not Given BID [facility] Pregabalin 150 mg 05/26/23 17:00 05/28/23 16:56 Pregabalin (*Crx) 75 Mg Capsule PO 150 mg TID ROXANNE Administration Senna/Docusate Sodium 2 tab 05/26/23 17:00 05/28/23 16:56 Senna/Docusate Sodium Tablet PO 2 tab BID ROXANNE Administration Triamterene/Hydrochlorothiazide 2 tab 05/27/23 09:00 05/28/23 09:53 Triamterene 37.5 Mg/Hctz 25 Mg (Maxzide) Tablet PO 2 tab QAM ROXANNE Administration
[2023-05-29] MEDS: diazePAM (*CRX) 5 MG TABLET PO ×2 (02:07→09:59)
[2023-05-29] MEDS: HYDROcodone/acetaminophen (*CRX) 10-325 MG TABLET 1 TAB PO ×3 (04:20→12:29)
[2023-05-29 05:47] VITALS: BP 120/47; PULSE 76; RESP 14; TEMP 36.3; O2SAT 95
[2023-05-29] MEDS: ENOXAPARIN 40 MG/0.4 ML SYRINGE SUB-Q (08:40)
[2023-05-29 08:41] VITALS: PULSE 76
[2023-05-29] MEDS: PREGABALIN (*CRX) 75 MG CAPSULE 150 MG PO ×2 (08:41→12:28)
[2023-05-29] MEDS: METOPROLOL TARTRATE 50 MG TAB 100 MG PO (08:41)
[2023-05-29] MEDS: TRIAMTERENE 37.5 MG/HCTZ 25 MG (MAXZIDE) TABLET 2 TAB PO (08:41)
[2023-05-29] MEDS: DULoxetine HCL 60 MG CAPSULE.DR PO (08:42)
[2023-05-29] MEDS: SENNA/DOCUSATE SODIUM TABLET 2 TAB PO (08:43)
[2023-05-29] MEDS: polyethylene glycoL 3350 17 GM POWD.PACK PO (08:43)
[2023-05-29] MEDS: LIDOCAINE 5% PATCH 1 PATCH TRANSDERM (08:44)
--- NOTE | 2023-05-29 12:38 | PC.NURSE ---
iv out, patient has all belongings, daughter at bedside. will be wheeled out by wheelchair to private car. gave origninal d/c paper with instructions, as well as updated d/c instructions. denies any questions.
--- NOTE | 2023-06-18 06:33 | PM.DS ---
DS: Admitting Diagnosis Discharge Date 05/29/23 Admitting Diagnosis Status post C4-5 and C5-6 anterior cervical diskectomy and fusion with postoperative pain DS: Discharge Diagnosis Discharge Diagnosis (1) Post-op pain: Code(s): G89.18 - Other acute postprocedural pain Status: Acute Plan patient is a 62-year-old female who was admitted 4 days status post C4-5 and C5-6 anterior cervical diskectomy and fusion with pain. She has not experiencing any significant neurologic deficit. DS: Summary Hospital Course Reason for hospitalization: Postoperative pain Hospital Course: Patient was. admitted to the hospital anddddddd her pain medications were adjusted. Physical and occupational therapy were involved in her care. She progressed of her hospitalization on on hospital day 3 was eating, ambulating, emptying her bladder her pain was under control by mouth pain medicine. Her wounds remain clean dry and intact. She was afebrile with stable vital signs. She was thereforw Allowed to be discharged to home. Status at Discharge Functional status at discharge: independent ambulation Time Spent with Patient Time attestation: Total time spent providing and/or coordinating discharge services: Discharge Plan Discharge Consulting providers: Elis Jerry Discharging Clinician: Elis Jerry Patient Disposition: Home, Self-Care Activity: other - see discharge instructions Diet: regular Discharge Instructions: Discharge Instructions Procedure: Anterior Cervical Diskectomy and Fusion (ACDF) Your doctor removed one or more discs from your neck, to remove pressure from the spinal cord or nerve roots, and then fused your spine using a small metal plate and a cage filled with synthetic bone. Here are some instructions to follow upon discharge from the hospital to help in your recovery: Activity: Until released by your doctor, you should not return to work. You should rest at home and let your body heal. Taking short walks is encouraged, but avoid strenuous exercise. Do not jog, run, lift weights, bicycle, or participate in any other exercises unless specifically allowed by your doctor. Most importantly, avoid lifting objects heavier than a telephone book or a carton of milk as this places a strain on your neck. If possible, avoid household activities that involve lifting such as laundry, grocery shopping, childcare. Try to arrange for help from friends and family for these activities while your neck heals. You should not drive for 7-10 days, until you are both off of narcotics and your neck has loosened up enough to safely check your blind spots. Your incision is covered with skin glue. This will typically peel off on its on in 14 days. You may shower starting on post-operative day 2. After showering, lightly dab your wound dry. Do not take baths or sit in a hot tub or pool until approved by your doctor at your follow-up appointment. DO NOT SMOKE TOBACCO. Smoking has been proven to interfere with the normal healing of the bones in your neck. Smoking will dramatically reduce the success rate of your surgery. Diet: You can return to your usual diet, unless instructed otherwise by your doctor. However, for the first few weeks, some foods will be harder to swallow than others. In general, softer foods such as broths, jello, yogurt, pudding are easier. Harder foods, such as steak, chicken, bread, rice may be more difficult for the first few weeks and should be avoided. You may notice some pain with swallowing in the first month after surgery- this is NORMAL. During the operation, a breathing tube is placed down your throat by the anesthesiologist. In addition, your throat is gently pulled to one side to perform the surgery. For both of these reasons, your throat will be sore. Some patients also notice the sensation of having a ?lump? in their throat- this can be normal. However, if you a
== END 2023-05-29 12:55 | disposition home or self-care (01) ==
LOC: ANHED 04:35 → ANH3MEDSUR 04:40
PROVIDERS: Admitting Provider Neurological Surgery; Emergency Provider Emergency Medicine; PCP Family Medicine; Visit Provider Neurological Surgery
DX: G89.18 Other acute postprocedural pain (principal); Z98.1 Arthrodesis status; R13.10 Dysphagia, unspecified; I10 Essential (primary) hypertension; E78.5 Hyperlipidemia, unspecified; F17.210 Nicotine dependence, cigarettes, uncomplicated; Z79.2 Long term (current) use of antibiotics; Z79.891 Long term (current) use of opiate analgesic; Z79.899 Other long term (current) drug therapy
CPT/HCPCS: 36415; 80048; 85025; 85055; 96372; 96374; 96375; 96376; 97110; 97116; 97161; 97530; 99285; A9270; G0378; J1170; J1650; J2270

== ENCOUNTER 2023-08-15 07:44 | Outpatient (CLI) | payer OTHER, SELFPAY ==
--- NOTE | ~2023-08-15 | XR_ITS ---
XR_[id number]_CR DATE: 08/15/2023 08:09 INDICATION: Arthrodesis status TECHNIQUE: AP, open-mouth, swimmer and lateral views COMPARISON: None FINDINGS: Status post anterior and interbody surgical fusion at C4-C6. There is minimal anterolisthesis at C2-3 and C3-4. Moderately severe degenerative disc disease at C6-7. No fracture or dislocation or locked facet or prevertebral soft tissue swelling is detected. IMPRESSION: Status post anterior and interbody spinal fusion at C4-C6 Minimal anterolisthesis at C2-3 and C3-4 Moderately severe degenerative disease at C6-7 Reviewed, dictated and finalized at [facility]. Reviewed, dictated and finalized at location [facility].
== END 2023-08-15 07:45 | disposition home or self-care (01) ==
PROVIDERS: PCP Family Medicine; Visit Provider Neurological Surgery
DX: Z98.1 Arthrodesis status (principal); G95.9 Disease of spinal cord, unspecified; M50.323 Other cervical disc degeneration at C6-C7 level
CPT/HCPCS: 72040

== ENCOUNTER 2023-08-31 08:27 | Outpatient (CLI) | payer OTHER, SELFPAY ==
--- NOTE | ~2023-08-31 | MR_ITS ---
EXAMINATION: MR thoracic spine wo con DATE: 08/31/2023 09:30 INDICATION: M54.16 - Radiculopathy, lumbar region TECHNIQUE: Magnetic resonance imaging (MRI) of the thoracic spine was performed without intravenous c ontrast. Sequences included: Sagittal T1, FSE T2, STIR; axial T2. COMPARISON: None FINDINGS: The cord is normal in signal and caliber. No suspicious focal or diffuse marrow signal. Conus termina zak at T12-L1. Mild thoracolumbar scoliosis. Mild exaggeration of the normal thoracic kyphosis. Verte bral bodies are aligned. Vertebral body heights are maintained. Multilevel moderate disc height loss and dehydration. Multilevel mild marginal osteophytosis. Multilevel mild facet hypertrophy. 2 mm righ t subarticular disc protrusion at T6-7. 2 mm central disc protrusion at T7-8. 2 mm right subarticular protrusion at T8-9. 2 mm left subarticular protrusion at T9-10. 3 mm left subarticular protrusion at T10-11. Mild diffuse disc bulge at T11-12. No severe central canal narrowing. No severe neural vannesa inal narrowing. IMPRESSION: Multilevel moderate degenerative disc disease. Multilevel small degenerative disc protrusions, descri bed in detail above. Multilevel mild facet arthropathy. No severe central canal or neural foraminal n arrowing. Reviewed, dictated and finalized at location [facility]. IMPRESSION: Multilevel moderate degenerative disc disease. Multilevel small degenerative di sc protrusions, described in detail above. Multilevel mild facet arthropathy. N o severe central canal or neural foraminal narrowing.
--- NOTE | ~2023-08-31 | MR_ITS ---
EXAMINATION: MR lumbar spine wo con DATE: 08/31/2023 09:39 INDICATION: M54.16 - Radiculopathy, lumbar region . TECHNIQUE: Magnetic resonance imaging (MRI) of the lumbar spine was performed without intravenous con trast. Sequences included sagittal T2-weighted FSE, sagittal T2-weighted FS FSE, sagittal T1-weighted FSE, and axial T2-weighted FSE. COMPARISON: 03/05/2019, report only FINDINGS: Moderate scoliosis. The last fully formed and hydrated disc is designated L5-S1. The marrow signal is benign and homogenous. Conus terminates at T12-L1. Multilevel loss of disc height and hydr ation, moderate at L5-S1 where there are also reactive endplate changes. Clumping of inferior nerve r oots. Subcentimeter bilateral renal cysts. T11-T12: Mild diffuse bulge. There is no facet joint osteoarthritis. There is no neural foraminal raquel nosis. There is no central canal stenosis. T12-L1: Mild diffuse bulge. There is mild facet joint osteoarthritis. There is no neural foraminal st enosis. There is no central canal stenosis. L1-L2: Mild diffuse bulge. There is moderate right and mild left facet joint osteoarthritis. There is no neural foraminal stenosis. There is no central canal stenosis. L2-L3: Moderate diffuse bulge. There is moderate bilateral facet joint osteoarthritis. There is mild bilateral neural foraminal stenosis. There is no central canal stenosis. L3-L4: Moderate diffuse bulge. There is severe right and moderate left facet joint osteoarthritis. Th ere is mild bilateral neural foraminal stenosis. There is moderate central canal stenosis. L4-L5: Moderate diffuse bulge. Posterior disc rent. Severe hypertrophy of the ligamentum flavum. Ther e is moderate bilateral facet joint osteoarthritis. There is moderate right and mild left neural fora louie stenosis. There is severe central canal stenosis. L5-S1: Moderate diffuse bulge, posterior disc rent, broad-based left subarticular and foraminal protr usion. There is moderate bilateral facet joint osteoarthritis. There is no right and moderate left ne ural foraminal stenosis. There is severe central canal stenosis. 5 mm anteriorly directed synovial cy st projecting off of the left L5-S1 facet joint which contributes to narrowing of the left neural for amen and lateral recess. IMPRESSION: Severe central canal stenosis at L4-5 and L5-S1 secondary to degenerative disc, facet, and ligamentum changes. Multilevel degenerative disc disease, moderate at L5-S1. Anteriorly directed L5-S1 facet joint synovial cyst which contributes to left sided neural foraminal and lateral recess narrowing at that level. Multilevel moderate and severe degrees of facet arthropathy. Lumbar arachnoiditis. Reviewed, dictated and finalized at location K. IMPRESSION: Severe central canal stenosis at L4-5 and L5-S1 secondary to degenerative disc, facet, and ligamentum changes. Multilevel degenerative disc disease, moderate at L5-S1. Anteriorly directed L5-S1 facet joint synovial cyst which contributes to left s ided neural foraminal and lateral recess narrowing at that level. Multilevel moderate and severe degrees of facet arthropathy. Lumbar arachnoiditis.
--- NOTE | ~2023-08-31 | MR_ITS ---
EXAMINATION: MR pituitary wo/w con DATE: 08/31/2023 10:20 INDICATION: Benign neoplasm of the pituitary gland. TECHNIQUE: Magnetic resonance imaging (MRI) of the brain and brainstem was performed without and with 16 mL MultiHance intravenous contrast. COMPARISON: Brain MRI 02/19/2023 FINDINGS: The pituitary is enlarged with height of 13 mm. There is a 10 x 8 x 15 mm enhancing mass of heterogeneous signal intensity in the pituitary on the right that measured 14 x 14 x 13 mm on . There is leftward deviation of the infundibulum. There is no acute ischemic infarct or intracrani al hemorrhage. There are scattered areas of nonspecific increased T2-weighted signal intensity in the cerebral white matter and zeina, which is within normal limits for the patient's age. The ventricles are normal in size. There is mild mucosal thickening in the ethmoid sinuses. The orbits are normal. T he mastoid air cells are normal. IMPRESSION: 1. 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 Reviewed, dictated and finalized at location A.
== END 2023-08-31 08:28 | disposition home or self-care (01) ==
LOC: ANHIMG 08:29
PROVIDERS: PCP Family Medicine; Visit Provider Neurological Surgery
DX: M47.16 Other spondylosis with myelopathy, lumbar region (principal); D35.2 Benign neoplasm of pituitary gland; M51.34 Other intervertebral disc degeneration, thoracic region; M51.36 Other intervertebral disc degeneration, lumbar region; M51.37 Other intervertebral disc degeneration, lumbosacral region
CPT/HCPCS: 70553; 72146; 72148; A9577

== ENCOUNTER 2023-12-11 07:33 | Outpatient (CLI) | payer OTHER, SELFPAY | END 2023-12-11 07:34 | disposition home or self-care (01) | LOC: ANHLAB 07:35 | PROVIDERS: PCP Family Medicine; Visit Provider Internal Medicine | DX: D35.2 Benign neoplasm of pituitary gland (principal); E27.40 Unspecified adrenocortical insufficiency | CPT/HCPCS: 36415; 82533; 96372; J0834 ==

== ENCOUNTER 2024-02-26 13:23 | Emergency (ER) | payer OTHER, SELFPAY ==
[2024-02-26] VITALS (13 sets, daily range): BP systolic 113–134; BP diastolic 62–84; PULSE 62–97; RESP 15–20; TEMP 36.6; O2SAT 93–100
--- NOTE | ~2024-02-26 | CT_ITS ---
EXAMINATION: CT lumbar spine wo con DATE: 02/26/2024 17:34 INDICATION: Fall. TECHNIQUE: Computed tomography (CT) of the lumbar spine was performed without intravenous contrast. A utomated exposure control and iterative reconstruction technique were employed. The dose-length produ ct was 928.40 mGy-cm. COMPARISON: Lumbar spine MRI 08/31/2023 FINDINGS: There is a gallstone in the gallbladder, which is normal in size. There is 14 degrees levos coliosis of lumbar spine. Vertebral body heights are normal. There is moderately decreased disc heigh t at L2-L3 and L3-L4, mildly decreased disc height at L4-L5, and severely decreased disc height at L5 -S1. The following disc levels are specifically discussed: L1-L2: The disc does not extend beyond the endplate margin. There is mild bilateral facet joint osteo arthritis. There is no neural foraminal stenosis. There is no central canal stenosis. L2-L3: The disc is bulging. There is moderate right and severe left facet joint osteoarthritis. There is mild bilateral neural foraminal stenosis. There is mild central canal stenosis. L3-L4: The disc is bulging. There is severe bilateral facet joint osteoarthritis. There is mild bilat eral neural foraminal stenosis. There is mild central canal stenosis. L4-L5: The disc is bulging. There is severe bilateral facet joint osteoarthritis. There is mild bilat eral neural foraminal stenosis. There is mild central canal stenosis. L5-S1: The disc is bulging. There is severe bilateral facet joint osteoarthritis. There is mild bilat eral neural foraminal stenosis. There is moderate central canal stenosis. IMPRESSION: 1. No fracture. 2. Severe lumbar spondylosis. 3. Lumbar levoscoliosis. Reviewed, dictated and finalized at location A.
--- NOTE | ~2024-02-26 | XR_ITS ---
EXAMINATION: XR chest 1V portable DATE: 02/26/2024 16:31 INDICATION: Altered mental status. TECHNIQUE: A single frontal view of the chest was obtained. COMPARISON: None. FINDINGS: There is no pneumonia, pleural effusion, or pneumothorax. The heart size is normal. There a re changes of anterior fusion procedure in cervical spine. IMPRESSION: 1. No acute cardiopulmonary disease. Reviewed, dictated and finalized at location A.
--- NOTE | ~2024-02-26 | CT_ITS ---
EXAMINATION: CT brain wo con DATE: 02/26/2024 15:14 INDICATION: Altered mental status. TECHNIQUE: Computed tomography (CT) of the head was performed without intravenous contrast. The mA wa s adjusted according to patient size. Iterative reconstruction technique was employed. The dose-lengt h product was 605.33 mGy-cm. COMPARISON: Brain MRI 08/31/2023 FINDINGS: There is no intracranial hemorrhage, acute infarction, or abnormal intracranial mass lesion . The ventricles are normal in size. The paranasal sinuses are clear. The mastoid air cells are seda l. The orbits are normal. IMPRESSION: 1. Normal brain. Reviewed, dictated and finalized at location A. IMPRESSION: 1. Normal brain.
--- NOTE | 2024-02-26 13:32 | PC.NURSE ---
Alicia, careers adviser, made aware that patient does not feel safe at home. Alicia to provide resources.
--- NOTE | 2024-02-26 14:51 | ED.AMS ---
HPI - Altered Mental Status General Chief Complaint: Altered Mental Status Stated Complaint: AMS, LKW a few days ago Time Seen by Provider: 02/26/24 15:34 63 year old female presents with decreased mental status over the past couple weeks. Patient has been able to do ADLs by herself. Patient has been having loss of bowel or bladder. Patient's family is concerned she is having multiple TIAs. Patient denies any pain currently. GENERAL: Well-appearing, well-nourished, and in no acute distress. HEAD: Normocephalic, atraumatic. EYES: PERRLA and EOMI. ENT: Nares clear, no rhinorrhea or epistaxis. Mucous membranes moist. NECK: Supple. CHEST: Clear to auscultation. No respiratory distress. HEART: Regular rate and rhythm. No murmur heard. Normal peripheral pulses. ABDOMEN: Soft, nontender, nondistended, normal active bowel sounds. EXTREMITIES: Normal range of motion. No edema. SKIN: Warm, dry, no rash. NEURO: No focal deficits. Patient answering questions appropriately. Patient is A&OX2 PSYCH: Normal mood and affect. Related Data Home Medications Medication Instructions Recorded Confirmed mupirocin 2 % topical ointment 1 applic topical DAILY PRN 2nd toe 07/24/22 05/26/23 Allergies Allergy/AdvReac Type Severity Reaction Status Date / Time No Known Allergies Allergy Verified 02/04/24 14:55 [facility] Past Medical History Medical History Bilateral arm weakness BMI 30.0-30.9,adult BMI 33.0-33.9,adult BMI 34.0-34.9,adult BMI greater than 30 Bronchitis Cervical spondylosis Changing skin lesion Decreased pulses in feet Elevated lipids Essential hypertension Leg weakness, bilateral Lumbar spondylosis with myelopathy Mass of pituitary Neuropathy Open wound of toe of left foot Overweight with body mass index (BMI) of 28 to 28.9 in adult Progressive neurological deficit Screen for colon cancer Screening for lipid disorders Screening, lipid Subcutaneous nodule of toe of left foot Surgical History Surgical History H/O cervical spine surgery Family History Family History Father No problems noted. Mother No problems noted. Sibling Cancer Social History Social History Smoking packs per day: 0.5 Smoking cigarettes per day: 10.0 Years smoked: 50 Smoking pack-years: 25.00 Smoking status: Current every day smoker Second hand tobacco smoke exposure: Yes Alcohol intake: never Substance use: never Substance use type: does not use Do You Feel Safe in your Home?: Yes Lack of Transportation: No Lack of Food: Never True Current Housing: I Have Housing Concerned About Future Housing: No Difficulty Paying Gas/Electric Bills: No Difficulty Paying for Meds: No Currently Unemployed: No Education: High School Diploma/GED Difficulty w/ Childcare or Family Care: No Living arrangements: with family Occupation/Education: occupation 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 Gender identity (if verbalized by the patient): Female Spiritual care concerns: No Course Vital Signs Vital signs: Vital Signs Temperature 36.6 C 02/26/24 13:27 Pulse Rate 62 02/26/24 13:27 Respiratory Rate 16 02/26/24 13:27 Blood Pressure 128/82 02/26/24 13:27 Pulse Oximetry 99 02/26/24 13:27 Temperature 36.6 C 02/26/24 13:27 Pulse Rate 83 02/26/24 18:17 Respiratory Rate 20 02/26/24 18:17 Blood Pressure 119/62 02/26/24 18:17 Pulse Oximetry 93 02/26/24 18:17 Oxygen Delivery Room Air 02/26/24 15:23 MDM - Altered Mental Status Lab Data 02/26/24 15:06 02/26/24 15:06 Labs: Lab Results 02/26/24 Range/Units 15:06 WBC 12.2 H (4.5-10.0) K/mm3
[2024-02-26 15:19] LABS: Basophils Absolute Auto 0.1 K/mm3 (0.0-0.1); Basophils Percent Auto 0.6 % (0.2-1.2); Eosinophils Absolute Auto 0.1 K/mm3 (0-0.3); Eosinophils Percent Auto 0.7 % (0-4.4); Hemoglobin 16.3 g/dL (12.0-15.0); Immature Granulocyte Absolute 0.02 K/mm3 (0.00-0.031); Immature Granulocyte Percent A 0.2 % (0-0.5); Lymphocytes Absolute Auto 2.18 K/mm3 (0.9-3.2); Lymphocytes Percent Auto 17.9 % (18.3-44.2); Mean Corpuscular Hemoglobin 30.2 pg (26-34); Mean Corpuscular Volume 88.9 fl (80-100); Mean Platelet Volume 9.2 fl (7.4-10.4); Monocytes Absolute Auto 0.7 K/mm3 (0.1-0.6); Monocytes Percent Auto 6.1 % (2.6-8.5); Neutrophils Absolute Auto 9.1 K/mm3 (1.3-6.7); Neutrophils Percent Auto 74.5 % (45.5-73.1); Platelet Count Result 430 k/mm3 (150-375); Red Cell Distribution Width 13.3 % (11.5-14.5); White Blood Count 12.2 K/mm3 (4.5-10.0)
--- NOTE | 2024-02-26 15:22 | PC.NURSE ---
Patient and family complain of frequent falls and chronic back pain and loss of bowel and bladder.
[2024-02-26 15:29] LABS: Acetaminophen < 10 ug/mL (10-30); Ethanol < 10 mg/dL (<10); Salicylate < 1.0 mg/dL (2-20)
[2024-02-26 15:31] LABS: Prothrombin Time 13.4 Seconds (11.1-14.7)
[2024-02-26 15:32] LABS: Partial Thromboplastin Time 29.3 Seconds (22.3-36.8)
[2024-02-26 15:33] LABS: Alanine Aminotransferase 34 U/L (6-35); Albumin Level 4.9 g/dL (3.5-5.1); Alkaline Phosphatase 146 U/L (38-126); Anion Gap 11 mmol/L (4-12); Aspartate Amino Transferase 40 U/L (14-36); Bilirubin,Total 0.7 mg/dL (0.2-1.3); Blood Urea Nitrogen 18 mg/dL (7-17); Calcium 10.6 mg/dL (8.4-10.2); Carbon Dioxide 36 mmol/L (22-30); Chloride 95 mmol/L (98-107); Estimated Glomerular Filt Rate > 60; Glucose 124 mg/dL (65-110); Sodium 142 mmol/L (137-145)
[2024-02-26] MEDS: POTASSIUM CHLORIDE INJ 40 MEQ in SODIUM CHLORIDE 0.9% IV 500 ML 130 MEQ IVPB (15:47)
[2024-02-26] MEDS: POTASSIUM CHLORIDE 20 MEQ PACKET (FOR LIQUID) 40 MEQ PO (15:47)
[2024-02-26] MEDS: SODIUM CHLORIDE 0.9% IV 500 ML (15:52)
--- NOTE | 2024-02-26 16:15 | ED.AMS ---
HPI - Altered Mental Status General Chief Complaint: Altered Mental Status Stated Complaint: AMS, LKW a few days ago Time Seen by Provider: 02/26/24 15:34 Source: patient Mode of arrival: ambulatory Limitations: no limitations History of Present Illness HPI narrative: PATIENT IS 63 YEARS OLD WHITE FEMALE CAME TO THE ED BY PRIVATE CAR WITH HER BEST FRIEND COMPLAINING OF CHRONIC LOWER BACK PAIN SECONDARY TO SPINAL STENOSIS, GOT WORSE OVER THE LAST 3 WEEKS, STARTED HAVING STOOL INCONTINENCE FOR THE LAST 7 DAYS. PATIENT HAVE HISTORY OF MULTIPLE FALLS FOR MONTHS. LIVES WITTH A FRIEND OFF AND ON,. Related Data Home Medications Medication Instructions Recorded Confirmed mupirocin 2 % topical ointment 1 applic topical DAILY PRN 2nd toe 07/24/22 05/26/23 Allergies Allergy/AdvReac Type Severity Reaction Status Date / Time No Known Allergies Allergy Verified 02/04/24 14:55 Review of Systems Review of Systems: All systems reviewed & are unremarkable except as noted in HPI and below PMFSH Past Medical History Medical History Bilateral arm weakness BMI 30.0-30.9,adult BMI 33.0-33.9,adult BMI 34.0-34.9,adult BMI greater than 30 Bronchitis Cervical spondylosis Changing skin lesion Decreased pulses in feet Elevated lipids Essential hypertension Leg weakness, bilateral Lumbar spondylosis with myelopathy Mass of pituitary Neuropathy Open wound of toe of left foot Overweight with body mass index (BMI) of 28 to 28.9 in adult Progressive neurological deficit Screen for colon cancer Screening for lipid disorders Screening, lipid Subcutaneous nodule of toe of left foot Surgical History Surgical History H/O cervical spine surgery Family History Family History Father No problems noted. Mother No problems noted. Sibling Cancer Social History Social History Smoking packs per day: 0.5 Smoking cigarettes per day: 10.0 Years smoked: 50 Smoking pack-years: 25.00 Smoking status: Current every day smoker Second hand tobacco smoke exposure: Yes Alcohol intake: never Substance use: never Substance use type: does not use Do You Feel Safe in your Home?: Yes Lack of Transportation: No Lack of Food: Never True Current Housing: I Have Housing Concerned About Future Housing: No Difficulty Paying Gas/Electric Bills: No Difficulty Paying for Meds: No Currently Unemployed: No Education: High School Diploma/GED Difficulty w/ Childcare or Family Care: No Living arrangements: with family Occupation/Education: occupation Additional 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 Gender identity (if verbalized by the patient): Female Spiritual care concerns: No Exam Narrative: GENERAL APPEARANCE: WELL-DEVELOPED, WELL-NOURISHED SKIN: NORMAL COLOR HEAD: NORMOCEPHALIC, NONTRAUMATIC EYES: CLEAR CONJUNCTIVA ENT: OROPHARYNX NORMAL, EARS NORMAL, NOSE NORMAL NECK: SUPPLE, NONTENDER CHEST AND RESPIRATORY: AIRWAY PATENT, NO RESPIRATORY DISTRESS, NO ACCESSORY MUSCLE USE HEART: REGULAR RATE/RHYTHM ABDOMEN: SOFT, NONTENDER, NO ORGANOMEGALY, QUIET BOWEL SOUNDS VASCULAR: NORMAL PERIPHERAL PULSES, NORMAL CAPILLARY REFILL. MUSCULOSKELETAL: NORMAL RANGE OF MOTION, NONTENDER BACK NEUROLOGIC: ALERT AND ORIENTED TO HER NAME AND TO THE YEAR ONLY NO SENSATION OF THE PERINEUM AREA INCLUDING THE GENITAL AREA EXTERNALLY, THE ANUS AND THE AREA AROUND THE ANUS. NEW REFLEXES ARE INTACT
[2024-02-26] MEDS: MORPHINE SULFATE (*CRX) 4 MG/ML INJ ×2 (17:59→19:10)
[2024-02-26] MEDS: ONDANSETRON INJ 4 MG/2 ML VIAL (17:59)
== END 2024-02-26 19:10 | disposition short-term general hospital (02) ==
PROVIDERS: Nurse Practitioner Family; Emergency Provider Emergency Medicine; PCP Family Medicine
DX: G83.4 Cauda equina syndrome (principal); I10 Essential (primary) hypertension; G62.9 Polyneuropathy, unspecified; E66.3 Overweight; Z68.26 Body mass index [BMI] 26.0-26.9, adult; M47.16 Other spondylosis with myelopathy, lumbar region; F17.210 Nicotine dependence, cigarettes, uncomplicated; Z79.899 Other long term (current) drug therapy
CPT/HCPCS: 36415; 70450; 71045; 72131; 80053; 80143; 80179; 82077; 84443; 85025; 85610; 85730; 96365; 96366; 96375; 96376; 99285; A9270; J2270; J2405; J3480; J7040

== ENCOUNTER 2024-03-27 10:34 | Emergency (ER) | payer OTHER, SELFPAY ==
[2024-03-27 10:41] VITALS: BP 174/101; PULSE 76; RESP 20; TEMP 36.4; O2SAT 99
[2024-03-27 11:10] VITALS: BP 181/102; PULSE 74; RESP 10; O2SAT 98
[2024-03-27 11:37] VITALS: BP 158/94; PULSE 65; RESP 24; TEMP 36.5; O2SAT 99
[2024-03-27 11:40] LABS: Basophils Absolute Auto 0.1 K/mm3 (0.0-0.1); Basophils Percent Auto 0.6 % (0.2-1.2); Eosinophils Absolute Auto 0.2 K/mm3 (0-0.3); Eosinophils Percent Auto 2.1 % (0-4.4); Hematocrit 39.7 % (37.0-47.0); Hemoglobin 12.9 g/dL (12.0-15.0); Immature Granulocyte Absolute 0.04 K/mm3 (0.00-0.031); Immature Granulocyte Percent A 0.4 % (0-0.5); Lymphocytes Absolute Auto 2.62 K/mm3 (0.9-3.2); Lymphocytes Percent Auto 25.3 % (18.3-44.2); Mean Corpuscular HGB Conc 32.5 g/dl (32-36); Mean Corpuscular Hemoglobin 29.7 pg (26-34); Mean Corpuscular Volume 91.5 fl (80-100); Mean Platelet Volume 9.1 fl (7.4-10.4); Monocytes Percent Auto 9.3 % (2.6-8.5); Neutrophils Absolute Auto 6.5 K/mm3 (1.3-6.7); Neutrophils Percent Auto 62.3 % (45.5-73.1); Platelet Count Result 428 k/mm3 (150-375); Red Blood Count 4.34 M/mm3 (4.2-5.4); Red Cell Distribution Width 13.2 % (11.5-14.5); White Blood Count 10.4 K/mm3 (4.5-10.0)
[2024-03-27 11:52] LABS: Alanine Aminotransferase 28 U/L (6-35); Alkaline Phosphatase 127 U/L (38-126); Anion Gap 7 mmol/L (4-12); Aspartate Amino Transferase 37 U/L (14-36); Bilirubin,Total 0.4 mg/dL (0.2-1.3); Blood Urea Nitrogen 14 mg/dL (7-17); Calcium 9.5 mg/dL (8.4-10.2); Carbon Dioxide 28 mmol/L (22-30); Chloride 104 mmol/L (98-107); Estimated CRCL calculation 74 ml/min; Estimated Glomerular Filt Rate > 60; Glucose 94 mg/dL (65-110); Magnesium 1.9 mg/dL (1.6-2.3); Potassium 3.5 mmol/L (3.4-5.0); Sodium 139 mmol/L (137-145)
--- NOTE | 2024-03-27 12:14 | ED.RECABL ---
HPI - Recheck/Abnormal Lab/Rx General Chief Complaint: Recheck/Abnormal Lab/Rx Stated Complaint: HTN Time Seen by Provider: 03/27/24 11:05 History of Present Illness HPI narrative: Patient is a 63-year-old female who presents ER elevated blood pressures. She is going to physical therapy in her systolic blood pressure was in the 200s so she was urged to come here. Patient reports prior to going to physical therapy she had taking 1000 mg of ibuprofen and also taken some sinus/flu medication. No phenylephrine in the medication as confirmed by daughter. No chest pain or shortness of breath. No headache or change in vision. Recently had medication adjusted while she is at [facility]. She is only on metoprolol 50 mg that she takes daily. She saw her PCP Saturday a with no blood pressure issues. Related Data Home Medications Medication Instructions Recorded Confirmed mupirocin 2 % topical ointment 1 applic topical DAILY PRN 2nd toe 07/24/22 05/26/23 methocarbamol 500 mg tablet 500 mg PO TID 03/23/24 metoprolol tartrate 100 mg tablet 50 mg PO DAILY 03/23/24 mirtazapine 7.5 mg tablet 7.5 mg PO QHS 03/23/24 oxycodone 5 mg capsule 5 mg PO Q8H PRN 03/23/24 sennosides 8.6 mg tablet (Senokot) 8.6 mg PO DAILY 03/23/24 Allergies Allergy/AdvReac Type Severity Reaction Status Date / Time No Known Allergies Allergy Verified 03/27/24 11:42 Review of Systems Review of Systems: All systems reviewed & are unremarkable except as noted in HPI and below Constitutional: Constitutional: Reports no additional constitutional complaints ENT: Reports system reviewed and no additional complaints, except as documented Cardiovascular: Cardiovascular: Reports no additional cardiovascular complaints Respiratory: Respiratory: Reports no additional respiratory complaints [facility] Past Medical History Medical History Bilateral arm weakness BMI greater than 30 Bronchitis Cervical spondylosis Changing skin lesion Decreased pulses in feet Elevated lipids Essential hypertension Leg weakness, bilateral Lumbar spondylosis with myelopathy Mass of pituitary Neuropathy Open wound of toe of left foot Overweight with body mass index (BMI) of 28 to 28.9 in adult Progressive neurological deficit Screen for colon cancer Screening for lipid disorders Screening, lipid Subcutaneous nodule of toe of left foot Surgical History Surgical History H/O cervical spine surgery Family History Family History Father No problems noted. Mother No problems noted. Sibling Cancer Social History Social History Smoking packs per day: 0.5 Smoking cigarettes per day: 10.0 Years smoked: 50 Smoking pack-years: 25.00 Smoking status: Current every day smoker Second hand tobacco smoke exposure: Yes Alcohol intake: never Substance use: never Substance use type: does not use Do You Feel Safe in your Home?: Yes Lack of Transportation: No Lack of Food: Never True Current Housing: I Have Housing Concerned About Future Housing: No Difficulty Paying Gas/Electric Bills: No Difficulty Paying for Meds: No Currently Unemployed: No Education: High School Diploma/GED Difficulty w/ Childcare or Family Care: No Living arrangements: with family Occupation/Education: occupation 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 Gender identity (if verbalized by the patient): Female Spiritual care concerns: No Exam Narrative: GENERAL: Well-appearing, well-nourished, and in no acute distress. HEAD: Normocephalic, atraumatic. ENT: Mucous membranes moist. CHEST: Clear to auscultation. No respiratory distress. HEART: Regular rate and rhythm. Normal peripheral pulses. ABDOMEN: Soft, nontender, nondistended. EXTREMITIES: Normal range of motion. No edema. SKIN: Warm, dry, no rash. NEURO: Alert and oriented x3. PSYCH: Normal mood and affect. Course Course Emergency Course: Patient resting comfortably. Blood pressure 159/95 mm Hg. Patient was taken off of her triamterene / HCTZ due to hypokalemia. Recommend she purchase a blood pressure monitor and take her blood pressure daily after sitting down for 10 minutes. Follow-up with her PCP. Normal blood pressure earlier this week. Vital Signs Vital signs: Vital Signs Temperature 97.6 F 03/27/24 10:41 Pulse Rate 76 03/27/24 10:41 Respiratory Rate 20 03/27/24 10:41 Blood Pressure 174/101 H 03/27/24 10:41 Pulse Oximetry 99 03/27/24 10:41 Oxygen Delivery Room Air 03/27/24 10:41 Temperature 97.7 F 03/27/24 11:37 Pulse Rate 65 03/27/24 11:37 Respiratory Rate 24 H 03/27/24 11:37 Blood Pressure 158/94 H 03/27/24 11:37 Pulse Oximetry 99 03/27/24 11:37 Oxygen Delivery Room Air 03/27/24 10:41 MDM - Recheck/Abnormal Lab/Rx Lab Data 03/27/24 11:34 03/27/24 11:34 Labs: Lab Results 03/27/24 Range/Units 11:34 WBC 10.4 H (4.5-10.0) K/mm3 RBC 4.34 (4.2-5.4) M/mm3 Hgb 12.9 D (12.0-15.0) g/dL Hct 39.7 (37.0-47.0) % MCV 91.5 (80-100) fl MCH 29.7 (26-34) pg MCHC 32.5 (32-36) g/dl RDW 13.2 (11.5-14.5) % Plt Count 428 H (150-375) k/mm3 MPV 9.1 (7.4-10.4) fl Immature Gran % (Auto) 0.4 (0-0.5) % Neut % (Auto) 62.3 (45.5-73.1) % Lymph % (Auto) 25.3 (18.3-44.2) % Holmes % (Auto) 9.3 H (2.6-8.5) % Eos % (Auto) 2.1 (0-4.4) % Baso % (Auto) 0.6 (0.2-1.2) % Lymph # (Auto) 2.62 (0.9-3.2) K/mm3 Holmes # (Auto) 1.0 H (0.1-0.6) K/mm3 Eos # (Auto) 0.2 (0-0.3) K/mm3 Baso # (Auto) 0.1 (0.0-0.1) K/mm3 Abs Immat Gran (auto) 0.04 H (0.00-0.031) K/mm3 Absolute Neuts (auto) 6.5 (1.3-6.7) K/mm3 Absolute Nucleated RBC 0.000 (0.0-0.012) K/mm3 Nucleated RBC % 0.0 (0.0-0.2) % Sodium 139 (137-145) mmol/L Potassium 3.5 (3.4-5.0) mmol/L Chloride 104 (98-107) mmol/L Carbon Dioxide 28 (22-30) mmol/L Anion Gap 7 (4-12) mmol/L BUN 14 (7-17) mg/dL Creatinine 0.60 L (0.7-1.0) mg/dL Estim Creat Clear Calc 74 ml/min Estimated GFR > 60 (59 - ) Glucose 94 (65-110) mg/dL Calcium 9.5 (8.4-10.2) mg/dL Magnesium 1.9 (1.6-2.3) mg/dL Total Bilirubin 0.4 (0.2-1.3) mg/dL AST 37 H (14-36) U/L ALT 28 (6-35) U/L Alkaline Phosphatase 127 H (38-126) U/L Total Protein 8.0 (6.3-8.2) g/dL Albumin 4.0 (3.5-5.1) g/dL Discharge Plan Discharge Clinical Impression: Hypertension Patient Disposition: Home, Self-Care Condition: Stable Instructions: Hypertension (ED) Additional Instructions: Please return to the emergency department if you develop severe and persistent chest pain, difficulty breathing, dizziness, leg swelling or if you are coughing up blood as these can be signs of a medical emergency. Please call your doctor for a follow up appointment to determine the need for further testing. Purchase a blood pressure cuff to monitor your blood pressure. Prescriptions: No Action mupirocin 2 % ointment 1 applic topical DAILY PRN (Reason: 2nd toe) metoprolol tartrate 100 mg tablet 50 mg PO DAILY methocarbamol 500 mg tablet 500 mg PO TID oxycodone 5 mg capsule 5 mg PO Q8H PRN sennosides [Senokot] 8.6 mg tablet 8.6 mg PO DAILY mirtazapine 7.5 mg tablet 7.5 mg PO QHS duloxetine 60 mg capsule,delayed release(DR/EC) See Rx Instructions .ROUTE .COMPLEX Qty: 30 0RF Dose Instruction: Take 1 capsule by mouth once daily Rx Instructions: Take 1 capsule by mouth once daily diazepam 5 mg tablet 5 mg PO Q8H 7 Days Qty: 21 0RF gabapentin 300 mg capsule 900 mg PO TID Qty: 180 0RF Follow-up/Referrals: Memo Camacho MD [Primary Care Provider] - 1 Week
[2024-03-27 12:35] VITALS: BP 162/87; PULSE 65; RESP 22; TEMP 36.5; O2SAT 99
== END 2024-03-27 12:51 | disposition home or self-care (01) ==
PROVIDERS: Emergency Provider Emergency Medicine; PCP Family Medicine
DX: I10 Essential (primary) hypertension (principal); E66.3 Overweight; Z68.27 Body mass index [BMI] 27.0-27.9, adult; G62.9 Polyneuropathy, unspecified; F17.210 Nicotine dependence, cigarettes, uncomplicated; Z79.899 Other long term (current) drug therapy
CPT/HCPCS: 36415; 80053; 83735; 85025; 99283

== ENCOUNTER 2024-08-29 08:03 | Outpatient (CLI) | payer MEDICAID, SELFPAY ==
--- NOTE | ~2024-08-29 | MR_ITS ---
EXAMINATION: MR pituitary wo/w con DATE: 08/29/2024 10:09 INDICATION: Benign neoplasm of the pituitary gland TECHNIQUE: Magnetic resonance imaging (MRI) of the brain and brainstem was performed without and with 14 mL ProHance intravenous contrast. Whole-brain sequences included sagittal T1-weighted FSE, axial diffusion-weighted FS EPI, axial 3D SWAN, axial T2-weighted FLAIR Propeller, and axial T2-weighted Pr opeller. Small cqkwi-gy-bnvt sequences included sagittal and coronal T1-weighted FSE centered at the pituitary. Postcontrast sequences included small jayid-yw-wbhg coronal T1-weighted FSE in a time cou rse and sagittal T1-weighted FSE and whole-brain axial T1-weighted FSE. Apparent diffusion coefficien t (ADC) maps were created. COMPARISON: Head CT dated 02/26/2024 FINDINGS: There are no areas of restricted diffusion to suggest acute infarction. No intracranial hemorrhage. T here are a few scattered small foci of nonspecific increased T2-weighted signal intensity in the cere bral white matter which is within normal limits for age. There is a 1.3 x 1.1 x 0.6 cm mass at the ri ght side of the pituitary which is hypoenhancing relative to normal pituitary tissue which is displac ed to the left side of the sella with corresponding leftward deviation of the normal pituitary stalk. No invasion of the cavernous sinus or protrusion above level of the sella. There are no intraparench ymal signal abnormalities seen on the other pulse sequences. The ventricles are symmetric and normal in size. There are no abnormal extra-axial fluid collections. Flow voids are seen in the cerebral art eries on the T2-weighted sequences consistent with their expected patency. Mild mucosal thickening th e bilateral ethmoid sinuses. Visualized orbits and soft tissues are unremarkable. There are no areas of abnormal enhancement on the post contrast images. IMPRESSION: 1. 1.3 x 1.1 x 0.6 cm hypoenhancing pituitary adenoma occupying the central to right side of the sell a. Reviewed, dictated and finalized at location A. IMPRESSION: 1. 1.3 x 1.1 x 0.6 cm hypoenhancing pituitary adenoma occupying the central to right side of the sella.
--- NOTE | ~2024-08-29 | MR_ITS ---
MRI of the left shoulder Technique: Axial proton-density fat-sat images, coronal proton density fat-sat and T2 fat-sat images, and sagittal T1-weighted and T2 fat-sat images were acquired. Clinical History: Pain Findings: There is mild AC joint degenerative change. Coracoclavicular, coracoacromial, and coracohum eral ligaments are intact. There are complete full-thickness tears of the entirety of the supraspinatus and infraspinatus tendon s. Fluid-filled gap measures approximately 4.2 x 4.2 cm in extent. Tendon is retracted to the medial third of the humeral head. Subscapularis tendon demonstrates probable severe tendinosis. No definite high-grade partial or full-thickness subscapularis tear seen, though motion artifact somewhat limits evaluation. Tendon of long head of the biceps appears to be intact with intra-articular tendinosis. There is degenerative tear of the superior labrum, probably extending to anterosuperior portion. Inferior glenohumeral ligament is intact. There are small glenohumeral joint effusion with fluid pass ing through the rotator cuff defect into the subacromial/subdeltoid bursa. No definite high-grade deg enerative change of the glenohumeral joint. Possible minimal fatty atrophy of the infraspinatus muscl e belly. There is probable minimal edematous change of the supraspinatus muscle belly. Impression: Complete full-thickness tears of the entire supraspinatus and infraspinatus tendons, as detailed abov e. Probable minimal fatty atrophy of infraspinatus muscle belly. Probable minimal edematous change of the supraspinatus muscle belly. Probable tendinosis of the subscapularis and biceps tendons. Evaluation of subscapularis in particula r is limited due to motion artifact. Probable degenerative tearing of the superior labrum extending to the anterosuperior portion. Reviewed, dictated and finalized at location M. Impression: Complete full-thickness tears of the entire supraspinatus and infraspinatus ten dons, as detailed above. Probable minimal fatty atrophy of infraspinatus muscle belly. Probable minimal edematous change of the supraspinatus muscle belly. Probable tendinosis of the subscapularis and biceps tendons. Evaluation of subs capularis in particular is limited due to motion artifact. Probable degenerative tearing of the superior labrum extending to the anterosup erior portion.
--- OUTSIDE RECORDS SUMMARY | 2024-08-29 08:06 | XMS_ITS | Continuity of Care Document ---
Author Organization [facility] Address [address] [place] [address] Phone Care Team Providers Care Quality Control Inspector Heading Name Role Phone Vic Mills MD Unavailable Unavailable Allergies, Adverse Reactions, Alerts Substance Reaction Status Criticality No Known Allergies Active No Inform ation Medications Medication Instructions Dosage Effective Dates (start - stop) Status Comments hydrocodone 5 mg-acetaminophen 325 mg tablet take 1-2 tablets by oral route 1 hr prior to RFN, then every 6 hours as needed for pain - Active DO NOT FILL UNTIL 02-14-21 FOR PROCEDURE Valium 5 mg tablet take 1 tablet by oral route1 hour prior to procedure, and 1 tablet just prior to procedure if needed. - Active DO NOT FILL UNTIL 02-14-21 FOR PROCEDURE Sutton 7.5 mg-325 mg tablet take 1 tablet by oral route every 8 hours as needed for pain as needed 1 tablet - Active gabapentin 300 mg capsule take 2 capsule by oral route 3 times every day 600 MG - Active cyclobenzaprine 10 mg tablet TAKE 1 TABLET BY MOUTH THREE TIMES DAILY - Active tramadol 50 mg tablet take 1 tablet by oral route 3 TIMES DAILY - Active metoprolol tartrate 100 mg tablet take 1 tablet by oral route 2 times every day with meals 100 MG - Active B12 5,000 mcg-100 mcg sublingual lozenge - Active triamterene 75 mg-hydrochlorothiazid e 50 mg tablet take 1 tablet by oral route every day 1.00 tablet - Active Procedures Procedure Date OFFICE/OUTPATIENT VISIT EST OFFICE/OUTPATIENT VISIT NEW OFFICE/OUTPATIENT VISIT EST OFFICE/OUTPATIENT VISIT EST OFFICE/OUTPATIENT VISIT EST OFFICE/OUTPATIENT VISIT EST OFFICE/OUTPATIENT VISIT EST OFFICE/OUTPATIENT VISIT NEW Advance Directives Directive Yes / No Effective Date File Name No Information Encounters Encounter Description Practice Location Reason(s) For Visit Diagnoses Date Provider Providers Copied on Encounter OFFICE/OUTPA TIENT VISIT EST [facility], [address], [address], tel:[phone] [facility] Acute bilateral low back pain without sciaticaLumbar facet arthropathy 1 Lina Ho. [address], [place], [id number]. tel:[phone] [facility], [address], [facility], tel:[phone] [facility] Spondylosis without myelopathy or radiculopathy, lumbosacral regionAcute bilateral low back pain without sciatica 1 Lina Ho. [address], [place], [id number]. tel:[phone] [facility], [address], [address], [place] tel:[phone] [facility] Spondylosis without myelopathy or radiculopathy, lumbosacral regionAcute bilateral low back pain without sciatica 1 Lina Ho. [address], [place], [id number]. tel:[phone] [facility], [address], [address], [place] tel:[phone] [facility] No Information 1 Lina Ho. [address], [place], [id number]. tel:[phone] [facility], [address] [address], [place], [address], [place] tel:[phone] [facility] Spondylosis without myelopathy or radiculopathy, lumbosacral regionLow back pain, unspecified back pain laterality, unspecified chronicity, unspecified whether sciatica present Sep-1 1 Lina Ho. [address] [facility], [place], [place], [address]. tel:[phone] OFFICE/OUTPA TIENT VISIT NEW [facility], [address], [address], [place] tel:[phone] [facility] Spondylosis without myelopathy or radiculopathy, lumbosacral regionLow back pain, unspecified back pain laterality, unspecified chronicity, unspecified whether sciatica presentBody mass index [BMI]30.0-30.9, adult Sep-0 1 Lina Ho. [address] [facility], [place], [place], [address]. tel:[phone] OFFICE/OUTPA TIENT VISIT EST [facility], [address] [address], [place], [address], [place] tel:[phone] [facility] Lumbar facet arthropathySpond ylosis without myelopathy or radiculopathy, lumbosacral region Jul-0 1 Reginald Ramesh. [address], [place], [place], [id number]. tel:[phone] [facility], [address] [address], [place], [address], [place] tel:[phone] [facility] No Information 1 Reginald Ramesh. [address], [place], [place], [id number]. tel:[phone] [facility], [address], [address], [place] tel:[phone] [facility] Lumbar facet arthropathy 1 Reginald Ramesh. [address] [facility], [place], [place], [address]. tel:[phone] [facility], [address], [place], [address], [place] tel:[phone] [facility] Spondylosis without myelopathy or radiculopathy, lumbosacral regionLumbar facet arthropathy 0 1 Reginald Ramesh. [address] [facility], [place], [place], [address]. tel:[phone] OFFICE/OUTPA TIENT VISIT EST [facility], [address] [facility] [address], [place], [address], [place] tel:[phone] [facility] Lumbar facet arthropathySpina l stenosis, lumbar region with neurogenic claudication Apr-0 2 0 Reginald Ramesh. [address], [place], [place], [id number]. tel:[phone] OFFICE/OUTPA TIENT VISIT EST [facility], [address] [facility] [address], [place], [address], [place] tel:[phone] [facility] Sacroiliitis, not elsewhere classifiedSpinal stenosis, lumbar region with neurogenic claudicationSpon dylosis without myelopathy or radiculopathy, lumbosacral regionLumbar facet arthropathy Dec-0 0 Reginald Ramesh. [address] [facility], [place], [place], [address]. tel:[phone] [facility], [address] [facility] [address], [place], [address], [place] tel:[phone] [facility] No Information Oct-3 0 0 Reginald Ramesh. [address] [facility], [place], [place], [address]. tel:[phone] [facility], [address] [facility] [address], [place], [address], [place] tel:[phone] [facility] Sacroiliitis, not elsewhere classifiedSpondy losis without myelopathy or radiculopathy, lumbosacral regionOther intervertebral disc displacement, lumbar region 0 Reginald Ramesh. [address], [place], [place], [address]. tel:[phone] OFFICE/OUTPA TIENT VISIT EST [facility], [address], [address], [place] tel:[phone] [facility] Spondylosis without myelopathy or radiculopathy, lumbosacral regionSpinal stenosis, lumbar region with neurogenic claudicationSacr oiliitis, not elsewhere classifiedLow back pain, unspecified back pain laterality, unspecified chronicity, unspecified whether sciatica present 0 Reginald Ramesh. [address], [place], [place], [address]. tel:[phone] [facility], [address], [address], [place] tel:[phone] [facility] Spondylosis without myelopathy or radiculopathy, lumbosacral regionRadiculopa thy, lumbar region Fe 0 Reginald Ramesh. [address], [place], [place], [address]. tel:[phone] OFFICE/OUTPA TIENT VISIT EST [facility], [address], [address], [place] tel:[phone] [facility] Spinal stenosis, lumbar region with neurogenic claudicationSpon dylosis without myelopathy or radiculopathy, lumbosacral region Feb-0 0 Reginald Ramesh. [address], [place], [place], [address]. tel:[phone] [facility], [address], [address], [place] tel:[phone] [facility] Acute bilateral low back pain with left-sided sciaticaAcute bilateral low back pain with right-sided sciaticaSpondylo sis without myelopathy or radiculopathy, lumbosacral region 0 Reginald Ramesh. [address], [place], [place], [address]. tel:[phone] OFFICE/OUTPA TIENT VISIT NEW [facility], [address], [place], [address], [place] tel:[phone] [facility] Body mass index (BMI) 32.0-32.9, adultSpondylosis without myelopathy or radiculopathy, lumbosacral regionAcute bilateral low back pain with right-sided sciaticaAcute bilateral low back pain with left-sided sciatica 0 Reginald Ramesh. [address], [place], [place], [address]. tel:[phone] Family History Family Member Type Diagnosis Age At Onset Sister Problem Renal disease Mother Problem (finding) Brother Problem (finding) Father Problem (finding) Sister Problem hypertension Father Problem (finding) Sister Problem Mother Problem (finding) Sister Problem Diabetes mellitus Payers Payer name Insurance type Covered libertarian ID Authoriza tion(s) [employer] Open Access Plus E2 OT [id number] Social History Type Description Quantity Date Captured Comments Alcohol Use Details No Caffeine Use Details Unknown Tobacco Use Status Occasional cigarette smoker Smoking Status Light tobacco smoker Sex Female Chief Complaint And Reason For Visit No Information Reason For Referral Reason For Referral No Information Plan Of Treatment Date Type Action Status Goal Dietary management education , guidance, and counseling completed Goal Tobacco cessation counseling completed Referral Ordered: DESTROY LUMB/SAC FACET JNT LT spine, lumbar Appointment date/timeframe: 02/15/2021 ordered Referral Ordered: DESTROY LUMB/SAC FACET JNT RT spine, lumbar Appointment date/timeframe: 03/01/2021 ordered Referral Ordered: INJ PARAVERT F JNT L/S 1 LEV spine, lumbar ordered Referral Ordered: INJ PARAVERT F JNT L/S 1 LEV Bilateral spine, lumbar ordered Referral Ordered: INJECT SACROILIAC JOINT Bilateral ordered Referral Ordered: NJX INTERLAMINAR LMBR/SAC spine, lumbar ordered Referral Ordered: INJ FORAMEN EPIDURAL L/S LT spine, lumbar ordered History Of Present Illness Encounter Date Complaint History Of Prese nt Illness No Information Functional Status Date Functional Assessmen t No Information Instructions Date Instruction Additional Infor mation Dietary management e ducation, guidance, and counseling Related to Body mass index [BMI]30.0-30.9, adult Giving encouragement to exercise Related to Body mass index (BMI) 32.0-32.9, adult Assessments Type Assessment Date assessment Acute bilateral low back pain wi thout sciatica assessment Lumbar facet arthropathy 2020 Patient Care Teams Name Effective Dates (start - stop) Status Members No Information
--- OUTSIDE RECORDS SUMMARY | 2024-08-29 08:06 | XMS_ITS | Clinical Summary ---
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 Gender Identity Not on file Sexual Orientation Not on file Plan of Treatment Health Maintenance Due Date Last Done Comments Hepatitis C Virus (HCV) Screening 1961 TdaP Immunization 1961 Pap Smear 1982 Cervical Cancer Screening (CCS) 11/27/1991 HPV/Cotest 11/27/1991 Colonoscopy 2006 Colorectal Cancer Screening 2006 Cologuard 11/27/2011 Immunochemical Fecal Occult Blood 11/27/2011 Mammogram 11/27/2011 Pneumococcal Immunization (5 0+ years) (1 of 1 - PCV) 11/27/2011 Zoster Immunization (1 of 2) 11/27/2011 Influenza Immunization (#1) 2024 SARS-COV-2 Immunization ( season) 2024 Respiratory Syncytial Virus (RSV) Immunization (Adult) (1 - 1-dose 75+ series) 2036 Hepatitis B Immunization Aged Out No longer eligible based on patient's age to complete this topic Meningococcal Immunization (ACWY) Aged Out No longer eligible based on patient's age to complete this topic Pneumococcal Immunization Combined Aged Out No longer eligible based on patient's age to complete this topic Rotavirus Immunization Aged Out No lo nger eligible based on patient's age to complete this topic
--- OUTSIDE RECORDS SUMMARY | 2024-08-29 08:06 | XMS_ITS | Clinical Summary ---
Author Organization [facility] Address [address] [place] [address] Care Team Providers Care Manager Consumer Name Role Phone Memo Camacho MD Primary Care Provider [phone] Memo Camacho MD Unavailable [phone] Tommy Kong MD Unavailable [phone] Allergies No known active allergies Medications ibuprofen (ADVIL,MOTRIN) 800 mg tablet Take 1 tablet (800 mg total) by mouth every 8 (eight) hours as needed for pain for up to 15 doses 15 tablet 9 Active gabapentin (NEURONTIN) 300 mg capsule 600 mg 3 (three) times a day [address] (CYMBALTA) 60 mg capsule 2 Active cyclobenzaprine (FLEXERIL) 10 mg tablet 2 Active metoprolol (LOPRESSOR) 100 mg tablet 2 Active triamterene-hydroC HLOROthiazide (MAXZIDE,DYAZIDE) 75-50 mg per tablet Take 1 tablet by mouth daily 2 Active fluticasone propionate (FLONASE) 50 mcg/actuation nasal spray daily as needed 2 Active doctjuxnbpcr-Ws-ey on-minerals tablet Take by mouth Active mupirocin (BACTROBAN) 2 % ointment APPLY A THIN LAYER (0.5-1 GM) ON SKIN TO AFFECTED AREA DAILY 3 Active traMADoL (ULTRAM) 50 mg tabletIndications: Complex regional pain syndrome type 1 of both lower extremities,Lumbar radiculopathy Take 1 tablet (50 mg total) by mouth daily as needed for pain 30 tablet 3 Active pregabalin (LYRICA) 50 mg capsule Take 50 mg by mouth 3 (three) times a day Active HYDROcodone-acetam inophen (NORCO) 5-325 mg per tablet take 1-2 tablets by oral route 1 hr prior to RFN, then every 6 hours as needed for pain 1 Active Active Problems Problem Noted Date Diagnosed Date Ulcer of left foot 04/11/2022 Gait instability 04/11/2022 Lumbar radiculopathy 01/24/2022 Lumbosacral spondylosis without myelopathy 01/24 Complex regional pain syndro me type 1 of both lower extremities 01/24/2022 Idiopathic peripheral neuropathy 01/24/2022 Medical History Medical History Date Comments Hypertension Smoking AGE 19 Skin cancer, basal cell SHOULDER AND BACK 2018 Peripheral neuropathy Family History Medical History Relation Name Comments Alcohol abuse Mother Drug abuse Mother Breast cancer Sister BRCA 1 Neg Hx BRCA 2 Neg Hx Endometrial cancer Neg Hx Ovarian cancer Neg Hx Pancreatic cancer Neg Hx Prostate cancer Neg Hx Thyroid cancer Neg Hx Relation Name Status Comments Father Mother Sister Alive Social History Tobacco Use Types Packs/Day Years Used Date Smoking Tobacco: Every Day Cigarettes Smokeless Tobacco: Never Tobacco Cessation:Ready to Q uit: Not Asked; Counseling Given: Not Answered Alcohol Use Standard Drinks/Week Comments Not Currently 0 (1 standard drink = 0.6 oz pur e alcohol) AUDIT-C Answer Date Recorded Q1: How often do you have a drink containing alcohol? Never 01/24/2022 Q2: How many drinks containi ng alcohol do you have on a typical day when you are drinking? Patient does not drink 2 Frequency of Binge Drinking Not on file 01/11 Personal Safety Answer Date Recorded Have you ever been in or are you currently in a harmful physical or emotional relationship or is someone making you feel afraid or unsafe? Denies 05/26/2023 Comments No Sex and Gender Information Value Date Recorded Sex Assigned at Not on file Legal Sex Female 2:53 PM NITROGLYCERIN NEUTRALIZER Gender Identity Not on file Sexual Orientation Not on file Obstetrics History Para Term AB IAB SAB Ectopic Multiple Livin g Live Births 2 2 2 Date Outcome GA Total Labor Labor/2nd/3rd Weight Sex Type Anes PTL Lucille A1 A5 Name Clin Term Term Last Filed Vital Signs Vital Sign Reading Time Taken Comments Blood Pressure 145/97 05/26/2023 2:52 AM NITROGLYCERIN NEUTRALIZER Pulse 68 05/26/2023 2:52 AM NITROGLYCERIN NEUTRALIZER Temperature 35.3 C (95.6 F) 05/26/2023 1:10 AM NITROGLYCERIN NEUTRALIZER Respiratory Rate 16 05/26/2023 2:52 AM NITROGLYCERIN NEUTRALIZER Oxygen Saturation 98% 05/26/2023 2:52 AM NITROGLYCERIN NEUTRALIZER Inhaled Oxygen Concentration - - Weight 86.6 kg (191 lb) 05/26/2023 1:07 AM NITROGLYCERIN NEUTRALIZER Height 165.1 cm (5' 5 ) 05/26/2023 1:07 AM NITROGLYCERIN NEUTRALIZER Body Mass Index 31.78 05/26/2023 1:07 AM NITROGLYCERIN NEUTRALIZER Plan of Treatment Health Maintenance Due Date Last Done Comments Cervical Cancer Screening 1961 Colon Cancer Screening-Colonoscopy 1961 Depression Screening 1961 Hepatitis C Screening 1961 Hepatitis B Screening 11/27/1979 Regular Well Visit/Exam 18-64 11/27/1979 Pneumococcal vaccine <65 (1 of 2 - PCV) 1980 Zoster Vaccine (1 of 2) 11/27/2011 DTaP/Tdap/Td Vaccine (2 - Td or Tdap) 02/02/2023 02/02/2013 Covid-19 Vaccine (3 - 2023-2 5 season) 2024 03/16/2021, 07/15/2020 Influenza Vaccine (#1) 2024 Breast Cancer Screening-Mammogram 02/18/2025 02/19/2024, 01/10/2023, 01/03/2022, Additional history exists Medical Devices Implanted Type Area Scenery Builder Device Identifier Shelf Expiration Date Model / Serial / Lot eTec Angio-Seal Vip 6fr Closere Device [id number] - [id number] Implanted:Qty: 1 on 06/14/2022 at [facility] Med Access [facility] 02/09/2023 [id number] / / [id number] Procedures Procedure Name Priority Date/Time Associated Diagnosis Comments SCREENING MAMMOGRAM BILATERAL W AARON Schedule Routine, Read Routine (OP Routine) 02/19/2024 12:45 PM CDT Screening mammogram, encounter for from Last 3 Months or Most Recently Relevant to Health Maintenance Results * Screening Mammogram Bilateral W Aaron (02/19/2024 12:45 PM CDT) Anatomical Region Laterality Modality Breast Bilateral Mammography 02/19/2024 4:19 PM CDT Impressions 02/19/2024 4:19 PM CDT No evidence of malignancy in either breast. FINAL ASSESSMENT: BI-RADS Category 1: Negative. RECOMMENDATION: Recommend return for annual screening mammogram in 12 months. Electronically signed by: Kate Ornelas M.D. Narrative 02/19/2024 4:19 PM CDT EXAMINATION: BILATERAL SCREENING MAMMOGRAM COMPARISON: Multiple prior mammograms dating back to 12/06/2014, most recent from 01/10/2023. TECHNIQUE: Full-field 2D and digital breast tomosynthesis (DBT) images were obtained. CAD was utilized. BREAST PARENCHYMAL COMPOSITION: There are scattered areas of fibroglandular density. FINDINGS: There is no suspicious mass, calcification, or distortion in either breast. There has been no significant change in the mammographic appearance of EITHER breast. us Self Screening Mammogram IMG MAMMO PROCEDURES Fi nal Result from Last 3 Months or Most Recently Relevant to Health Maintenance Insurance [employer] [facility] HMO/PPO Address: [address] [place] [address] Advance Directives For more information, please contact: [phone] * Full Code (Latest Code Status on File) Date Activated Date Inactivated Comments 06/14/2022 7:53 AM 06/15/2022 4:55 AM Care Teams Manager Consumer Relationship Specialty Start Date End Date Memo Camacho MD PCP - General Family Medicine 05/26/23 Memo Camacho MD 05/26/23 [place] [address] [place] [address] Consulting Physician Obstetrics and Gynecology 12/21/21
--- OUTSIDE RECORDS SUMMARY | 2024-08-29 08:06 | XMS_ITS | Encounter Summary ---
Author Organization [facility] Address [address] [place] [address] Care Team Providers Care Hearing Aid Dispenser Name Role Phone Memo Camacho MD Primary Care Provider [phone] Encounter Details Date Type Department Care Team (Late st Contact Info) Description 03/19/2018 Lab Requisition [facility] [address] [place] [id number] Pj Kumar MD [facility] [address] [address] Social History Tobacco Use Types Packs/Day Years Used Date Smoking Tobacco: Every Day Cigarettes 0.5 32 Alcohol Use Standard Drinks/Week Comments No 0 (1 standard drink = 0.6 oz pur e alcohol) Comments No Sex and Gender Information Value Date Recorded Sex Assigned at Not on file Legal Sex Female 6:09 AM SENIOR BRAND MANAGER Gender Identity Not on file Sexual Orientation Not on file documented as of this encounter Plan of Treatment Upcoming Encounters Date Type Department Care Team (Late Contact Info) Description 09/04/2024 4:00 PM CDT Office Visit [facility] - Neurosurgery [address] [place] [phone] Guillermo Leyva MD [address] [place] [address] documented as of this encounter Procedures Procedure Name Priority Date/Time Associated Diagnosis Comments DERMATOPATHOLOGY Routine 03/18/2018 12:0 0 AM SENIOR BRAND MANAGER documented in this encounter Results * DERMATOPATHOLOGY (03/18/2018 12:00 AM SENIOR BRAND MANAGER) Case Report Dermatopathology Report Case: [id number] Authorizing Provider: Pj Kumar MD Collected: 03/18/2018 12:00 AM Pathologist: Evelyne Garcia MD Received: 03/19/2018 06:50 AM Specimens: A) - Skin, left shoulder upper outer B) - Skin, right anterior mid breast C) - Skin, right upper back 10:54 AM [facility] DERMATOPATHOLOGY LABORATORY Final Diagnosis Specimen A. SKIN, left shoulder upper outer: BASAL CELL CARCINOMA, INFILTRATIVE PATTERN (C44.619) Specimen B. SKIN, right anterior mid breast: DERMATOFIBROMA (D23.9) Specimen C. SKIN, right upper back: BASAL CELL CARCINOMA, SUPERFICIAL MULTIFOCAL (C44.519) 10:54 AM [facility] DERMATOPATHOLOGY LABORATORY Clinical History A: R/O BCC. B: R/O BCC vs dermatofibroma. C: R/O BCC. 10:54 AM [facility] DERMATOPATHOLOGY LABORATORY Gross Description Specimen A: Received is one formalin filled container labeled with the patient's name and designated left shoulder upper outer. The specimen consists of a shave biopsy measuring [id number]. Jar 0. Specimen B: Received is one formalin filled container labeled with the patient's name and designated right anterior mid breast. The specimen consists of a shave biopsy measuring [id number]. Jar 0. Specimen C: Received is one formalin filled container labeled with the patient's name and designated right upper back. The specimen consists of a shave biopsy measuring [id number]. Jar 0. 10:54 AM [facility] DERMATOPATHOLOGY LABORATORY Microscopic Description Specimen A. SKIN, left shoulder upper outer: Within the dermis there are nodular aggregates of basaloid cells associated with fibromyxoid stroma and epithelial-stromal clefts. At the advancing margin of the neoplasm, there are smaller angulated nests that infiltrate the dermis. Specimen B. SKIN, right anterior mid breast: There is epidermal hyperplasia. Within the dermis, there are fibrohistiocytic cells in haphazard array among coarse collagen bundles. Specimen C. SKIN, right upper back: Attached to the undersurface of the epidermis, there are small aggregates of basaloid cells with a high nuclear to cytoplasmic ratio and peripheral palisading. 8 10:54 AM [facility] DERMATOPATHOLOGY LABORATORY Disclaimer An external and internal positive and negative controls are appropriate for the histochemical, immunohistochemical and immunofluorescence stain(s) in this case (if any), except where stated explicitly. The performance characteristics of the stain(s) cited in this report were developed and its performance characteristic determined by the Dermatopathology Laboratory at [facility]. These tests need not be, and therefore are not, approved by the [place] Food and Drug Administration. The tests are used for clinical purposes. Billing Codes Specimen Charges Stain Charges 11600 92427 04052 1 1 1 8 10:54 AM SENIOR BRAND MANAGER DERMATOPATHOLOGY LABORATORY Embedded Images 8 10:54 AM SENIOR BRAND MANAGER DERMATOPATHOLOGY LABORATORY Pathology/Cytology TISSUE SPECIMEN FROM SKIN / Unknown 03/18/2018 03/19/2018 6:50 AM SENIOR BRAND MANAGER Miscellaneous samples (specimen) TISSUE SPECIMEN FROM SKIN / Unknown 03/18/2018 03/19/2018 6:50 AM SENIOR BRAND MANAGER Miscellaneous samples (specimen) TISSUE SPECIMEN FROM SKIN / Unknown 03/18/2018 03/19/2018 6:50 AM SENIOR BRAND MANAGER us Pj Kumar MD LAB - PATHOLOGY/CYTOLOGY ORDERAB LES Final Result DERMATOPATHOLOGY LABORATORY [facility] - Department of Dermatology [facility], [address]th [place] [address], [facility] [phone] documented in this encounter Visit Diagnoses Not on filedocumented in this encounter Care Teams Hearing Aid Dispenser Relationship Specialty Start Date End Date Memo Camacho MD [address] [place] [address] PCP - General Family Medicine 02/26/24 documented as of this encounter
--- OUTSIDE RECORDS SUMMARY | 2024-08-29 08:06 | XMS_ITS | Clinical Summary ---
Author Organization [facility] Address [address] [place] [address] Care Team Providers Care Manufacturing Chief Engineer Name Role Phone Kenyon Luis DC Primary Care Provider [phone] Social History Tobacco Use Types Packs/Day Years Used Date Smoking Tobacco: Never Assessed Comments Unknown Sex and Gender Information Value Date Recorded Sex Assigned at Not on file Legal Sex Female 7:56 AM CDT Gender Identity Not on file Sexual Orientation Not on file Plan of Treatment Health Maintenance Due Date Last Done Comments Cervical Cancer Screening Pa p Smear (Age 30 to 64) Every 3 Years 1961 Colorectal Cancer Screening Colonoscopy (10 Years) 1961 Annual Physical 1964 Hepatitis C 11/27/1979 DTaP, Tdap and Td Vaccines ( 1 - Tdap) 1980 Cervical Cancer Screening Pa p with HPV Testing (Age 30 to 64) Every 5 Years 11/27/1991 Cervical Cancer Screening with HPV 11/27/1991 Mammogram Screening 2001 Zoster Vaccines (1 of 2) 11/27/2011 COVID-19 Vaccine (2023-2 5 season) 2024 RSV Immunization or 60+ Years (1 - 1-dose 75+ series) 2036 Meningococcal B Vaccine Aged Out No l onger eligible based on patient's age to complete this topic Meningococcal Vaccine Aged Out No javier nickolas eligible based on patient's age to complete this topic Pneumococcal Vaccine: Pediat rics (0 to 5 Years) and At-Risk Patients (6 to 49 Years) Aged Out No longer eligible b ased on patient's age to complete this topic RSV Immunizations Under 20 Months Aged Out No longer eligible based on patient's age to complete this topic Insurance [facility] Care Teams Manufacturing Chief Engineer Relationship Specialty Start Date End Date Kenyon Luis DC [address] [place] [address] [id number] PCP - General CHIROPRACTIC 01/07/19
--- OUTSIDE RECORDS SUMMARY | 2024-08-29 08:06 | XMS_ITS | Clinical Summary ---
Author Organization [facility] Address [address] [place] [address] Care Team Providers Care Bagman/Woman Name Role Phone Unavailable Primary Care Provider Unavailabl e Allergies No known active allergies Medications acetaminophen (TYLENOL) 500 MG tablet Take 2 tablets (1,000 mg total) by mouth every 6 (six) hours. 03/18/2024 Active DULoxetine (CYMBALTA) 60 MG capsule Take 1 capsule (60 mg total) by mouth in the morning. 30 capsule 03/19/2024 03/19/20 25 Active gabapentin (NEURONTIN) 300 MG capsule Take 3 capsules (900 mg total) by mouth 3 (three) times a day. 270 capsule 03/18/2024 03/18/20 25 Active lidocaine (LIDOCARE) 4 % patch patch Place 3 patches on the skin in the morning. 03/19/2024 Active methocarbamol (ROBAXIN) 500 MG tablet Take 1 tablet (500 mg total) by mouth 3 (three) times a day as needed for muscle spasms. 30 tablet 03/18/2024 Active metoprolol succinate XL (TOPROL-XL) 50 MG 24 hr tablet Take 1 tablet (50 mg total) by mouth in the morning. 30 tablet 03/19/2024 03/19/20 25 Active mirtazapine (REMERON) 7.5 MG tablet Take 1 tablet (7.5 mg total) by mouth nightly. 30 tablet 03/18/2024 Active senna (SENOKOT) 8.6 MG tablet Take 1 tablet (8.6 mg total) by mouth in the morning. 03/19/2024 Active polyethylene glycol (MIRALAX) 17 g packet Take 17 g by mouth in the morning. 03/19/2024 Active Active Problems Problem Noted Date Diagnosed Date Spinal stenosis 03/06/2024 Lumbar disc prolapse with radiculopathy 03/06/20 Hypertensive disorder 02/27/2024 Social History Tobacco Use Types Packs/Day Years Used Date Smoking Tobacco: Every Day Cigarettes 0.3 50.3 Started: 1973 Smokeless Tobacco: Never Tobacco Cessation:Ready to Q uit: Not Asked; Counseling Given: Not Answered Alcohol Use Standard Drinks/Week Comments Never 0 (1 standard drink = 0.6 oz pur e alcohol) [facility] Utilities Answer Date Recorded In the past 12 months has th e electric, gas, oil, or water company threatened to shut off services in your home? No 03/07/2024 Social Connection and Isolat ion Panel [NHANES] Answer Date Recorded In a typical week, how many times do you talk on the phone with family, friends, or neighbors? More than three times a week 03/07/2024 How often do you get togethe r with friends or relatives? More than three times a week 03/07/2024 How often do you attend chur ch or hindu services? More than 4 times per year 03/07/2024 Do you belong to any clubs o r organizations such as sikhism groups, unions, fraternal or athletic groups, or school groups? No 03/07/2024 How often do you attend meet ings of the clubs or organizations you belong to? Never 03/07/2024 Are you , , di vorced, , never , or living with a partner? 03/07/2024 AUDIT-C Answer Date Recorded Q1: How often do you have a drink containing alcohol? Never 03/06/2024 Q2: How many drinks containi ng alcohol do you have on a typical day when you are drinking? Patient does not drink Q3: How often do you have si x or more drinks on one occasion? Never 03/06/2024 Overall Financial Resource Strain (CARDIA) Answe r Date Recorded How hard is it for you to pa y for the very basics like food, housing, medical care, and heating? Not very hard 03/07/2024 [facility] [place] [facility] - Occupational Stress Questionnaire Answer Date Recorded Do you feel stress - tense, restless, nervous, or anxious, or unable to sleep at night because your mind is troubled all the time - these days? Only a little 03/19/2024 Hunger Vital Sign Answer Date Recorded Within the past 12 months, y ou worried that your food would run out before you got the money to buy more. Never true 03/07/20 24 Within the past 12 months, t he food you bought just didn't last and you didn't have money to get more. Never true 03/07/2024 Housing Stability Vital Sign Answer Epifanio e Recorded In the last 12 months, was t here a time when you were not able to pay the mortgage or rent on time? No 03/07/2024 In the past 12 months, how m any times have you moved where you were living? 1 03/07/2024 At any time in the past 12 m onths, were you homeless or living in a fpc (including now)? No 03/07/2024 Domestic Abuse Assessment Answer Date R ecorded Do you feel safe in your relationships at home? Yes 03/06/2024 Physical Abuse Denies 03/06/2024 HRSN Domestic Abuse - Type of Abuse Not on file 03/06/2024 HRSN Domestic Abuse - Time Frame Not on file 03/06/2024 HRSN Domestic Abuse - Signs and Symptoms Not on file 03/06/2024 Verbal Abuse Denies 03/06/2024 HRSN Domestic Abuse - Reported To Not on file 03/06/2024 SM SDOH Transportation Source Answer Da te Recorded Has lack of transportation k ept you from medical appointments or from getting medications? No 03/18/2024 Has lack of transportation k ept you from meetings, work, or from getting things needed for daily living? No 03/18/2024 HRSN Depression PHQ-2 Answer Date Recor ded Feeling down, depressed, or hopeless 00 03/19/2024 Little interest or pleasure in doing things 00 03/19/2024 Comments Unknown Sex and Gender Information Value Date Recorded Sex Assigned at Not on file Legal Sex Female 12:25 PM EDT Gender Identity Not on file Sexual Orientation Not on file Last Filed Vital Signs Vital Sign Reading Time Taken Comments Blood Pressure 154/90 03/19/2024 11:14 AM MANAGEMENT TRAINEE Pulse 71 03/19/2024 9:43 AM MANAGEMENT TRAINEE Temperature 36.6 C (97.9 F) 03/19/2024 7:31 AM MANAGEMENT TRAINEE Respiratory Rate 18 03/19/2024 7:31 AM MANAGEMENT TRAINEE Oxygen Saturation 97% 03/19/2024 9:4 3 AM MANAGEMENT TRAINEE Inhaled Oxygen Concentration - - Weight 66.2 kg (146 lb) 03/13/2024 4:00 AM CDT bedscale needs recalibration Height 165.1 cm (5' 5 ) 03/13/2024 4:00 AM CDT Body Mass Index 24.3 03/13/2024 4:00 AM CDT Plan of Treatment Not on file Advance Directives * Full Resuscitation (Latest Code Status on File) Date Activated Date Inactivated Comments 03/06/2024 4:15 PM 03/19/2024 3:33 PM Question Answer Comments I have discussed this order with the patient or his/her surrogate and have received informed consent. Yes
--- OUTSIDE RECORDS SUMMARY | 2024-08-29 08:06 | XMS_ITS | Encounter Summary ---
Author Organization [facility] Address [address] [place] [address] Care Team Providers Care Electrician Chief Name Role Phone Memo Camacho MD Primary Care Provider [phone] Encounter Details Date Type Department Care Team (Late st Contact Info) Description 01/08/2011 [facility] [place] [address] [address] Social History Tobacco Use Types Packs/Day Years Used Date Smoking Tobacco: Every Day Cigarettes 0.5 32 Alcohol Use Standard Drinks/Week Comments No 0 (1 standard drink = 0.6 oz pur e alcohol) Comments No Sex and Gender Information Value Date Recorded Sex Assigned at Not on file Legal Sex Female 6:09 AM MANAGER OFFICE Gender Identity Not on file Sexual Orientation Not on file documented as of this encounter Plan of Treatment Upcoming Encounters Date Type Department Care Team (Late Contact Info) Description 09/04/2024 4:00 PM CDT Office Visit [facility] - Neurosurgery [address] [place] [address], [place] [address] Guillermo Leyva MD [address] [place] [address] [place] [address] documented as of this encounter Visit Diagnoses Not on filedocumented in this encounter Care Teams Electrician Chief Relationship Specialty Start Date End Date Memo Camacho MD [address] [place] [address] PCP - General Family Medicine 02/26/24 documented as of this encounter
--- OUTSIDE RECORDS SUMMARY | 2024-08-29 08:06 | XMS_ITS | Referral Summary ---
Author Organization [facility] Address [address] [place] [address] Care Team Providers Care Airborne Operations Superintendent Name Role Phone Memo Camacho MD Primary Care Provider [phone] Memo Camacho MD Unavailable [phone] Tommy Kong MD Unavailable [phone] Allergies No known active allergies Medications ibuprofen [...] nasal spray daily as needed 2 Active neocxijhxtzr-Ds-qq on-minerals tablet Take by mouth Active mupirocin [...] lower extremities 01/24/2022 Idiopathic peripheral neuropathy 01/24/2022 Social History Tobacco Use Types Packs/Day Years [...] on file Legal Sex Female 2:53 PM PRODUCTION SUPPORT DEVELOPER Gender Identity Not on file Sexual Orientation Not on file Last Filed Vital Signs Vital Sign Reading Time Taken Comments Blood Pressure 145/97 05/26/2023 2:52 AM PRODUCTION SUPPORT DEVELOPER Pulse 68 05/26/2023 2:52 AM PRODUCTION SUPPORT DEVELOPER Temperature 35.3 C (95.6 F) 05/26/2023 1:10 AM PRODUCTION SUPPORT DEVELOPER Respiratory Rate 16 05/26/2023 2:52 AM PRODUCTION SUPPORT DEVELOPER Oxygen Saturation 98% 05/26/2023 2:52 AM PRODUCTION SUPPORT DEVELOPER Inhaled Oxygen Concentration - - Weight 86.6 kg (191 lb) 05/26/2023 1:07 AM PRODUCTION SUPPORT DEVELOPER Height 165.1 cm (5' 5 ) 05/26/2023 1:07 AM PRODUCTION SUPPORT DEVELOPER Body Mass Index 31.78 05/26/2023 1:07 AM PRODUCTION SUPPORT DEVELOPER Plan of Treatment Not on file Medical Devices Implanted Type Area Road Freight Firer Device Identifier Shelf Expiration Date Model / Serial / Lot Xochitl ([employer]Shee) [employer] mines Angio-Seal Vip 6fr Closere Device [id number] - [id number] Implanted:Qty: 1 on 06/14/2022 at [facility] [employer] 02/09/2023 [id number] / / [id number] Procedures Procedure Name Priority Date/Time Associated Diagnosis [...] Most Recently Relevant to Health Maintenance Insurance [facility] PLUS [place] [id number] Advance Directives For more information, please contact: [phone] * Full Code (Latest Code Status on File) Date Activated Date Inactivated Comments 06/14/2022 7:53 AM 06/15/2022 4:55 AM Care Teams Airborne Operations Superintendent Relationship Specialty Start Date End Date Memo Camacho MD PCP - General Family Medicine 05/26/23 Memo Camacho MD 05/26/23 [place] [address] [address] Consulting Physician Obstetrics and Gynecology 12/21/21
--- OUTSIDE RECORDS SUMMARY | 2024-08-29 08:06 | XMS_ITS | Clinical Summary ---
Author Organization [facility] Address [address] [facility] [place] [address] Care Team Providers Care Product Representative Name Role Phone Memo Camacho MD Primary Care Provider [phone] Source Comments [facility],non-owned Affiliates and Associated Physician Practices is amultiple site organization consisting of ambulatory clinics and hospital sitesin [place], [place], [place] and [place]. This disclosure is being madepursuant to the Care Everywhere program and may not contain all information available regarding this patient. Last updated 18.[facility] Allergies No known active allergies Medications * Be aware that medications may not be up to date on this document. Alwaysverify current medications with the patient. etodolac (LODINE) 400 MG tablet 08/04/19 14 Active oxyCODONE, immediate release, (Roxicodone) 10 MG tabletIndication s:Spinal stenosis of lumbar region, unspecified whether neurogenic claudication present Take 1 (one) tablet by mouth every 4 hours as needed 12 tablet 03/04/20 24 Active acetaminophen (Tylenol) 500 MG tablet Take 2 (two) tablets by mouth every 6 hours Maximum allowable Acetaminophen amount = 4 Grams (4000 mg) / 24 hours. 03/04/20 24 Active hemorrhoidal (Preparation H) ointment Insert into the rectum 3 times daily 03/04/20 Active gabapentin (Neurontin) 300 MG capsule Take 3 (three) capsules by mouth 3 times daily 03/04/20 Active DULoxetine (Cymbalta) 60 MG capsule Take 1 (one) capsule by mouth once daily 03/05/20 Active mirtazapine (Remeron) 7.5 MG tablet Take 1 (one) tablet by mouth at bedtime 03/04/20 Active traZODone (Desyrel) 50 MG tablet Take 0.5 (one-half) tablet by mouth 3 times daily as needed for Insomnia (anxiety) 03/04/20 Active polyethylene glycol 3350 (Miralax) 17 g packet Take 17 (seventeen) g by mouth once daily 03/05/20 Active senna (Senokot) 8.6 MG tablet Take 1 (one) tablet by mouth once daily 03/05/20 Active lidocaine (Lidoderm) 5 % patch Apply 2 (two) patches to skin every 24 hours Apply patch to most painful area and remove after 12 hours. May reapply a new patch 12 hours later. 03/05/20 Active methyl salicylate-menth ol (Vernon Celis) topical Apply to affected area 4 times daily as needed 03/04/20 Active methocarbamol (Robaxin) 500 MG tablet Take 1 (one) tablet by mouth every 8 hours 03/04/20 Active Active Problems Problem Noted Date Diagnosed Date Spinal stenosis of lumbar re gion, unspecified whether neurogenic claudication present 02/27/2024 Urinary incontinence, unspecified type Incontinence of feces, unspecified fecal inconti nence type 02/27/2024 HTN (hypertension) 02/27/2024 Hypokalemia 02/27/2024 Screening for condition 06/13/2009 Overview (02/10/2015): Adult Abstraction Problem List Screening Pap Smear: Result: Negative Date: 04/14/08 Mammogram: Result: Negative Date: 04/20/08 Encounters Date Type Department Care Team Description 07/21/2024 Travel from Last 3 Months Family History Medical History Relation Name Comments Cancer Sister breast Relation Name Status Comments Sister Social History Tobacco Use Types Packs/Day Years Used Date Smoking Tobacco: Every Day Cigarettes 0.5 32 Alcohol Use Standard Drinks/Week Comments No 0 (1 standard drink = 0.6 oz pur e alcohol) AUDIT-C Answer Date Recorded Q1: How often do you have a drink containing alcohol? Never 03/05/2024 Q2: How many drinks containi ng alcohol do you have on a typical day when you are drinking? Patient does not drink Q3: How often do you have si x or more drinks on one occasion? Never 03/05/2024 Overall Financial Resource Strain (CARDIA) Answe r Date Recorded How hard is it for you to pa y for the very basics like food, housing, medical care, and heating? Not hard at all 03/05/2024 [facility] - Occupational Stress Questionnaire Answer Date Recorded Do you feel stress - tense, restless, nervous, or anxious, or unable to sleep at night because your mind is troubled all the time - these days? Not at all 03/05/2024 Hunger Vital Sign Answer Date Recorded Within the past 12 months, y ou worried that your food would run out before you got the money to buy more. Never true 03/05/20 24 Within the past 12 months, t he food you bought just didn't last and you didn't have money to get more. Never true 03/05/2024 PRAPARE - Transportation Answer Date Re corded In the past 12 months, has l ack of transportation kept you from medical appointments or from getting medications? No 02/11 In the past 12 months, has l ack of transportation kept you from meetings, work, or from getting things needed for daily living? No 03/05/2024 Housing Stability Vital Sign Answer Epifanio e Recorded In the last 12 months, was t here a time when you were not able to pay the mortgage or rent on time? No 03/05/2024 In the past 12 months, how m any times have you moved where you were living? 0 03/05/2024 At any time in the past 12 m [facility], were you homeless or living in a intermediate (including now)? No 03/05/2024 Comments No Sex and Gender Information Value Date Recorded Sex Assigned at Not on file Legal Sex Female 6:09 AM REHABILITATION ENGINEER Gender Identity Not on file Sexual Orientation Not on file Last Filed Vital Signs Vital Sign Reading Time Taken Comments Blood Pressure 131/81 03/18/2024 2:12 PM REHABILITATION ENGINEER Pulse 71 03/18/2024 2:12 PM REHABILITATION ENGINEER Temperature 36.8 C (98.2 F) 03/18/2024 2:12 PM REHABILITATION ENGINEER Respiratory Rate 18 03/18/2024 2:12 PM REHABILITATION ENGINEER Oxygen Saturation 94% 03/18/2024 2:12 PM REHABILITATION ENGINEER Inhaled Oxygen Concentration - - Weight 74.8 kg (164 lb 14.4 oz) 03/18/2024 2:12 PM REHABILITATION ENGINEER Height 165.1 cm (5' 5 ) 03/18/2024 2:12 PM REHABILITATION ENGINEER Body Mass Index 27.44 03/18/2024 2:12 PM REHABILITATION ENGINEER Plan of Treatment Upcoming Encounters Date Type Department Care Team (Late st Contact Info) Description 09/04/2024 4:00 PM CDT Office Visit [facility] - Neurosurgery [address] [place] [address], [place] [address] Guillermo Leyva MD [address] [place] [id number] Health Maintenance Due Date Last Done Comments COLOGUARD (AGES 45-75) - COLON CA SCREENING 1961 COLON MONITORING 1961 COLONOSCOPY - COLON CA SCREENING 1961 CT COLONOGRAPHY - COLON CA SCREENING 1961 Colorectal Cancer Screening 1961 FIT - COLON CA SCREENING 1961 FLEX SIG - COLON CA SCREENING 1961 LIPID TESTING 1961 HIV SCREENING 1976 HEPATITIS C SCREENING 11/22/1979 DTAP/TDAP/TD VACCINES (1 - Tdap) 1980 PNEUMOCOCCAL VACCINE 50+ (1 of 2 - PCV) 1980 ZOSTER VACCINE (1 of 2) 11/27/2011 Respiratory Syncytial Virus (RSV) Vaccine Pt: or over 60 yrs (1 - Risk 60-74 years 1-dose series) 2021 PAP with HPV 10/11/2022 10/11/2017, 06/11/2013, 11/03/2012 COVID-19 VACCINE ( - season) 2024 03/16/2021, 07/15/2020 DEPRESSION SCREENING 05/13/2024 INFLUENZA VACCINE (Season Ended) 2025 MAMMOGRAM 02/18/2026 02/19/2024, 01/2024, 01/10/2023, Additional history exists SCREENING FOR DIABETES 03/19/2027 , 03/16/2024, 03/09/2024, Additional history exists HEPATITIS B VACCINE Aged Out No longe r eligible based on patient's age to complete this topic HIB VACCINE Aged Out No longer eligi ble based on patient's age to complete this topic HPV VACCINE Aged Out No longer eligi ble based on patient's age to complete this topic MENINGOCOCCAL (Group B) VACCINE SHARED DECISION-MAKING Aged Out No longer eligible based on patient's age to complete this topic MENINGOCOCCAL GROUPS A/C/Y/W VACCINE Aged Out No longer eligible based on patient's age to complete this topic Procedures Procedure Name Priority Date/Time Associated Diagnosis Comments BASIC METABOLIC PANEL (CALCIUM TOTAL) Routine 03/19/2024 4:06 AM REHABILITATION ENGINEER MAMMOGRAM 01/03/2022 PAP IG LB +HPV APTIMA REFLEX 16,18/45 Routine 10/11/2017 1:09 PM CDT Well female exam with routine gynecological exam Special screening examination for human papillomavirus (HPV) from Last 3 Months or Most Recently Relevant to Health Maintenance Results * (ABNORMAL) BASIC METABOLIC PANEL (CALCIUM TOTAL) (03/19/2024 4:06 AM REHABILITATION ENGINEER) Glucose 90 70 - 99 mg/dL 03/19/2024 6:34 AM REHABILITATION ENGINEER [facility] Sodium 143 136 - 145 mmol/L 03/19/2024 6:34 AM REHABILITATION ENGINEER [facility] Potassium 3.8 3.5 - 5.1 mmol/L 03/19/2024 6:34 AM REHABILITATION ENGINEER [facility] Chloride 110(H) 98 - 107 mmol/L 03/19/2024 6:34 AM REHABILITATION ENGINEER [facility] CO2 25 22 - 29 mmol/L 03/19/2024 6:34 AM REHABILITATION ENGINEER [facility] Calcium 9.5 8.4 - 10.4 mg/dL 03/19/2024 6:34 AM [facility] Anion Gap 8 6 - 16 mmol/L 03/19/2024 6:34 AM REHABILITATION ENGINEER [facility] BUN 18 7 - 26 mg/dL 03/19/2024 6:34 AM [facility] Creatinine 0.79 0.57 - 1.11 mg/dL 03/19/2024 6:34 AM [facility] eGFR by CKD-EPI 85(L) >=90 mL/min/1.7 3 m2 03/19/2024 6:34 AM [facility] Blood BLOOD SPECIMEN / Unknown Lab Venipuncture / Unknown 03/19/2024 4:06 AM REHABILITATION ENGINEER 03/19/2024 6:01 AM REHABILITATION ENGINEER Ted Villalpando MD LAB - CHEMISTRY ORDERABLES Final Result [facility] [address] [place] [address] * MAMMOGRAM (01/03/2022) Anatomical Region Laterality Modality Other 01/03/2022 Narrative 01/03/2022 Ordered by an unspecified provider. us Scanned Document SCANNING ONLY Final Result * (ABNORMAL) PAP IG LB +HPV APTIMA REFLEX 16,18/45 (10/11/2017 1:09 PM CDT) Diagnosis (A) [facility] ACCOUNT BILL Comment: EPITHELIAL CELL ABNORMALITY. ATYPICAL SQUAMOUS CELLS OF UNDETERMINED SIGNIFICANCE. Recommendation (A) [facility] ACCOUNT BILL Comment:Suggest follow up as clinically appropriate. Specimen Adequacy [facility] ACCOUNT BILL Comment: Satisfactory for evaluation. Endocervical and/or squamous metaplastic cells (endocervical component) are present. Clinician Provided ICD10 [facility] ACCOUNT BILL Comment: Z01.419 Z11.51 Performed by [facility] ACCOUNT BILL Comment:Diamond Monzon Cyto technologist (ASCP) Electronically Signed by [facility] ACCOUNT BILL Comment:Meg Barron MD, Pa thologist Comment . [facility] ACCOUNT BILL Pathologist Provided ICD10 [facility] ACCOUNT BILL Comment:R87.610 Note [facility] ACCOUNT BILL Comment: The Pap smear is a screening test designed to aid in the detection of premalignant and malignant conditions of the uterine cervix. It is not a diagnostic procedure and should not be used as the sole means of detecting cervical cancer. Both false-positive and false-negative reports do occur. . IGLBP CPT Code Automation [facility] ACCOUNT BILL Comment: This liquid based ThinPrep(R) pap test was screened with the use of an image guided system. Human papillomavirus Aptima Positive( A) Negative [facility] ACCOUNT BILL Comment: This test detects fourteen high-risk HPV types (16/18/31/33/35/39/45/ 51/52/56/58/59/66/68) without differentiation. PART OF UTERINE CERVIX / Unknown 10/11/2017 1:09 PM CDT 10/11/2017 Narrative [facility] ACCOUNT BILL - 10/16/2017 10:16 AM CDT Source.............Endoc[facility]ix No. of containers..01 ThinPrep Vial Resulting Agency Comment [facility] [address] [id number] Tommy Kong MD LAB - PATHOLOGY/CYTOLOGY OR DERABLES Final Result [facility] ACCOUNT BILL [address] [place] [address] from Last 3 Months or Most Recently Relevant to Health Maintenance Advance Directives * Full Code (Latest Code Status on File) Date Activated Date Inactivated Comments 03/06/2024 3:46 PM 03/19/2024 1:32 PM * Full Code Date Activated Date Inactivated Comments 02/27/2024 9:08 AM 03/06/2024 3:40 PM Care Teams Product Representative Relationship Specialty Start Date End Date Memo Camacho MD [address] [place] [address] PCP - General Family Medicine 02/26/24
== END 2024-08-29 08:04 | disposition home or self-care (01) ==
PROVIDERS: PCP Family Medicine; Visit Provider Family Medicine
DX: M75.122 Complete rotator cuff tear or rupture of left shoulder, not specified as traumatic (principal); D35.2 Benign neoplasm of pituitary gland
CPT/HCPCS: 70553; 73221; A9579

== ENCOUNTER 2025-04-09 10:46 | Outpatient (CLI) | payer OTHER, SELFPAY ==
--- NOTE | ~2025-04-09 | XR_ITS ---
XR hip BI 2V w AP pelvis 04/09/2025 11:43 Indication: Right hip pain Procedure: AP pelvis and 2 views each hip Comparison: No prior studies for comparison. Findings: Mild symmetric osteoarthritis of the hips. Pelvic rings intact. No acute fracture or traumatic malalignment. There is lower lumbar spondylosis with levoscoliosis. Impression: 1: Mild osteoarthritis of the hips. Reviewed, dictated and finalized at location I. T MARKETING REPRESENTATIVE Impression: 1: Mild osteoarthritis of the hips.
--- NOTE | ~2025-04-09 | XR_ITS ---
EXAMINATION: XR chest 2V 04/09/2025 11:42 INDICATION: Bronchitis PROCEDURE: 2 view chest COMPARISON: 02/26/2024 FINDINGS: The lungs are clear. The cardiomediastinal silhouette is within normal limits. There are no pleural effusions. There is no pneumothorax suspected. IMPRESSION: 1: NO ACUTE CARDIOPULMONARY DISEASE. Reviewed, dictated and finalized at location I. ANALYST
--- NOTE | ~2025-04-09 | XR_ITS ---
EXAMINATION: XR shoulder LT min 2V, 04/09/2025 11:30 SUPERVISOR METAL FURNITURE FABRICATION HISTORY: M25.512 - Pain in left shoulder COMPARISON: No comparisons available. Findings: No acute fracture or malalignment. No significant degenerative changes. Soft tissues unremarkable. Impression: No acute fracture or malalignment. Reviewed, dictated and finalized at location P. RVISOR METAL FURNITURE FABRICATION Impression: No acute fracture or malalignment.
--- OUTSIDE RECORDS SUMMARY | 2025-04-09 10:50 | XMS_ITS | Clinical Summary ---
Author Organization [facility] Address [address] [place] [address] Care Team Providers Care Conflicts Analyst Name Role Phone Memo Camacho MD Primary Care Provider [phone] Memo Camacho MD Unavailable [phone] Tommy Kong MD Unavailable [phone] Allergies No known active allergies Medications ibuprofen [...] nasal spray daily as needed 2 Active ucvjbpvnwczy-Xg-we on-minerals tablet Take by mouth Active mupirocin [...] abuse Mother Breast cancer Sister BRCA 1 positive Neg Hx BRCA 2 positive Neg Hx Endometrial cancer Neg Hx Ovarian [...] on file Legal Sex Female 2:53 PM YARN WORKER Gender Identity Not on file Sexual Orientation Not on file Obstetrics History Para Term AB IAB SAB Ectopic Multiple Livin g Live Births 2 2 2 Date Outcome GA Total Labor Labor/2nd/3rd Weight Sex Type Anes PTL Lucille A1 A5 Name Clin Term Term Last Filed Vital Signs Vital Sign Reading Time Taken Comments Blood Pressure 145/97 05/26/2023 2:52 AM YARN WORKER Pulse 68 05/26/2023 2:52 AM YARN WORKER Temperature 35.3 C (95.6 F) 05/26/2023 1:10 AM YARN WORKER Respiratory Rate 16 05/26/2023 2:52 AM YARN WORKER Oxygen Saturation 98% 05/26/2023 2:52 AM YARN WORKER Inhaled Oxygen Concentration - - Weight 86.6 kg (191 lb) 05/26/2023 1:07 AM YARN WORKER Height 165.1 cm (5' 5) 05/26/2023 1:07 AM YARN WORKER Body Mass Index 31.78 05/26/2023 1:07 AM YARN WORKER Plan of Treatment Health Maintenance Due Date Last Done Comments Cervical Cancer Screening 1961 Colon Cancer Screening-Colonoscopy 1961 Depression Screening 1961 Hepatitis C Screening 1961 Hepatitis B Screening 11/27/1979 Regular Well Visit/Exam 18-64 11/27/1979 Pneumococcal vaccine <65 (1 of 2 - PCV) 1980 Zoster Vaccine (1 of 2) 11/27/2011 DTaP/Tdap/Td Vaccine (2 - Td or Tdap) 02/02/2023 02/02/2013 Covid-19 Vaccine (3 - 2024-2 6 season) 2025 03/16/2021, 07/15/2020 Influenza Vaccine (#1) 2025 Breast Cancer Screening-Mammogram 02/18/2025 02/19/2024, 01/10/2023, 01/03/2022, Additional history exists Medical Devices Implanted Type Area Propulsion Systems Engineer Device Identifier Shelf Expiration Date Model / Serial / Lot [employer] Angio-Seal Vip 6fr Closere Device [id number] - [id number] Implanted:Qty: 1 on 06/14/2022 at [facility] [employer] [facility] 02/09/2023 [id number] / / [id number] Procedures Procedure Name Priority Date/Time Associated Diagnosis [...] Most Recently Relevant to Health Maintenance [facility] Advance Directives For more information, please contact: [phone] * Full Code (Latest Code Status on File) Date Activated Date Inactivated Comments 06/14/2022 7:53 AM 06/15/2022 4:55 AM Care Teams Conflicts Analyst Relationship Specialty Start Date End Date Memo Camacho MD PCP - General Family Medicine 05/26/23 Memo Camacho MD 05/26/23 [place] [address] [place] [id number] Consulting Physician Obstetrics and Gynecology 12/21/21
--- OUTSIDE RECORDS SUMMARY | 2025-04-09 10:50 | XMS_ITS | Clinical Summary ---
Author Organization [facility] Address [address] [place] [address] Care Team Providers Care Catering Service Manager Name Role Phone Memo Camacho MD Primary Care Provider [phone] Source Comments [facility],non-owned Affiliates and Associated Physician Practices is amultiple site organization consisting of ambulatory clinics and hospital sitesin [place], [place], [place] and [place]. This disclosure is being madepursuant to the Care Everywhere program and may not contain all information available regarding this patient. Last updated 18.[facility] Allergies No known active allergies Medications * [...] Date: 04/14/08 Mammogram: Result: Negative Date: 04/20/08 Family History Medical History Relation Name Comments [...] and heating? Not hard at all 03/05/2024 [facility] [place] of Occupat ional Health - Occupational Stress [...] any time in the past 12 m [facility], were you homeless or living in a jail (including now)? No 03/05/2024 Comments No Sex and Gender Information Value Date Recorded Sex Assigned at Not on file Legal Sex Female 6:09 AM SKIN THERAPIST Gender Identity Not on file Sexual Orientation Not on file Last Filed Vital Signs Vital Sign Reading Time Taken Comments Blood Pressure 147/88 09/04/2024 3:49 PM CDT Pulse 60 09/04/2024 3:49 PM CDT Temperature 36.7 C (98 F) 09/04/2024 3:49 PM CDT Respiratory Rate 18 03/18/2024 2:12 PM SKIN THERAPIST Oxygen Saturation 94% 03/18/2024 2:1 2 PM SKIN THERAPIST Inhaled Oxygen Concentration - - Weight 69.4 kg (153 lb) 09/04/2024 3:49 PM CDT wheelchair patient reported Height 165.1 cm (5' 5) 09/04/2024 3:49 PM CDT Body Mass Index 25.46 09/04/2024 3:49 PM CDT Plan of Treatment Health Maintenance Due Date [...] 1980 ZOSTER VACCINE (1 of 2) 11/27/2011 PAP SMEAR 10/11/2020 10/11/2017, 10/12, 11/06/2013, Additional history exists Cervical Cancer Screening 10/11/2022 PAP with HPV 10/11/2022 10/11/2017, 10/12, 11/03/2012 DEPRESSION SCREENING 05/13/2024 COVID-19 VACCINE ( season) 2025 03/16/2021, 07/15/2020 INFLUENZA VACCINE (#1) 2025 MAMMOGRAM 02/18/2026 02/19/2024, 01/2024, 01/10/2023, Additional history exists SCREENING FOR DIABETES 03/19/2027 , 03/16/2024, 03/09/2024, Additional history exists Respiratory Syncytial Virus (RSV) Vaccine Pt: or over 60 yrs (1 - 1-dose 75+ series) 2036 HEPATITIS B VACCINE Aged Out No longe [...] PANEL (CALCIUM TOTAL) Routine 03/19/2024 4:06 AM SKIN THERAPIST MAMMOGRAM 01/03/2022 PAP IG LB +HPV APTIMA REFLEX 16,18/45 Routine 10/11/2017 1:09 PM CDT Well female exam with routine gynecological exam Special screening examination for human papillomavirus (HPV) from Last 3 Months or Most Recently Relevant to Health Maintenance Results * (ABNORMAL) BASIC METABOLIC PANEL (CALCIUM TOTAL) (03/19/2024 4:06 AM SKIN THERAPIST) Glucose 90 70 - 99 mg/dL 03/19/2024 6:34 AM [facility] Sodium 143 136 - 145 mmol/L 03/19/2024 6:34 AM [facility] Potassium 3.8 3.5 - 5.1 mmol/L 03/19/2024 6:34 AM [facility] Chloride 110(H) 98 - 107 mmol/L 03/19/2024 6:34 AM [facility] CO2 25 22 - 29 mmol/L 03/19/2024 6:34 AM [facility] Calcium 9.5 8.4 - 10.4 mg/dL 03/19/2024 6:34 AM [facility] Anion Gap 8 6 - 16 mmol/L 03/19/2024 6:34 AM [facility] BUN 18 7 - 26 mg/dL 03/19/2024 6:34 AM [facility] Creatinine 0.79 0.57 - 1.11 mg/dL 03/19/2024 6:34 AM SKIN THERAPIST [facility] eGFR by CKD-EPI 85(L) >=90 mL/min/1.7 3 m2 03/19/2024 6:34 AM SKIN THERAPIST [facility] Blood BLOOD SPECIMEN / Unknown Lab Venipuncture / Unknown 03/19/2024 4:06 AM SKIN THERAPIST 03/19/2024 6:01 AM SKIN THERAPIST Ted Villalpando MD LAB - CHEMISTRY ORDERABLES Final Result [facility] [address] [place] [address] * MAMMOGRAM (01/03/2022) Anatomical Region Laterality Modality [...] containers..01 ThinPrep Vial Resulting Agency Comment [facility] [place] [place] [phone] Tommy Kong MD LAB - PATHOLOGY/CYTOLOGY OR DERABLES Final Result [facility] ACCOUNT BILL [address] [place] [address] from Last 3 Months or Most Recently Relevant to Health Maintenance Insurance [place] [address] Advance Directives * Full Code (Latest Code Status on File) Date Activated Date Inactivated Comments 03/06/2024 3:46 PM 03/19/2024 1:32 PM * Full Code Date Activated Date Inactivated Comments 02/27/2024 9:08 AM 03/06/2024 3:40 PM Care Teams Catering Service Manager Relationship Specialty Start Date End Date Memo Camacho MD [address] [place] [address] PCP - General Family Medicine 02/26/24
--- OUTSIDE RECORDS SUMMARY | 2025-04-09 10:50 | XMS_ITS | Encounter Summary ---
Author Organization [facility] Address [address] [facility] [place] [address] Care Team Providers Care Associate Quality Engineer Name Role Phone Memo Cmaacho MD Primary Care Provider [phone] Encounter Details Date Type Department Care Team (Late st Contact Info) Description 01/08/2011 [facility] Outpatient Visit EX[place] [address] [address] Social History Tobacco Use Types Packs/Day Years Used Date Smoking Tobacco: Every Day Cigarettes 0.5 32 Alcohol Use Standard Drinks/Week Comments No 0 (1 standard drink = 0.6 oz pur e alcohol) Comments No Sex and Gender Information Value Date Recorded Sex Assigned at Not on file Legal Sex Female 6:09 AM EDUCATIONAL MANAGER Gender Identity Not on file Sexual Orientation Not on file documented as of this encounter Plan of Treatment Not on file documented as of this encounter Visit Diagnoses Not on filedocumented in this encounter Care Teams Associate Quality Engineer Relationship Specialty Start Date End Date Memo Camacho MD [address] [place] [address] PCP - General Family Medicine 02/26/24 documented as of this encounter
--- OUTSIDE RECORDS SUMMARY | 2025-04-09 10:50 | XMS_ITS | Clinical Summary ---
Author Organization [facility] Address [address] [place] [address] Care Team Providers Care Product Development Carpenter Name Role Phone Kenyon Luis DC Primary Care Provider [phone] Social History Tobacco Use Types Packs/Day Years [...] Screening with HPV 11/27/1991 Mammogram Screening 2001 Pneumococcal Vaccine: 50+ Ye ars (1 of 1 - PCV) 11/27/2011 Zoster Vaccines (1 of 2) 11/27/2011 COVID-19 Vaccine ( - 2024-2 6 season) 2025 Influenza Adult (#1) 2025 RSV Immunization or 60+ Years (1 - 1-dose 75+ series) 2036 Hepatitis A Vaccines Aged Out No long er eligible based on patient's age to complete this topic Meningococcal B Vaccine Aged Out No l onger eligible based on patient's age to complete this topic Meningococcal Vaccine Aged Out No javier nickolas eligible based on patient's age to complete this topic RSV Immunizations Under 20 Months Aged Out No longer eligible based on patient's age to complete this topic [place] [address] [place] [address] Care Teams Product Development Carpenter Relationship Specialty Start Date End Date Kenyon Luis DC [address] [place] [phone] PCP - General CHIROPRACTIC 01/07/19
--- OUTSIDE RECORDS SUMMARY | 2025-04-09 10:50 | XMS_ITS | Encounter Summary ---
Author Organization [facility] Address [address] [place] [address] Care Team Providers Care Binding Nicker Name Role Phone Memo Camacho MD Primary Care Provider [phone] Encounter Details Date Type Department Care Team (Late st Contact Info) Description 03/19/2018 Lab Requisition [facility] [address] [facility] [place] [id number] Pj Kumar MD [address] [address] Social History Tobacco Use Types Packs/Day Years Used Date Smoking Tobacco: Every Day Cigarettes 0.5 32 Alcohol Use Standard Drinks/Week Comments No 0 (1 standard drink = 0.6 oz pur e alcohol) Comments No Sex and Gender Information Value Date Recorded Sex Assigned at Not on file Legal Sex Female 6:09 AM DIE SIZER Gender Identity Not on file Sexual Orientation Not on file documented as of this encounter Plan of Treatment Not on file documented as of this encounter Procedures Procedure Name Priority Date/Time Associated Diagnosis Comments DERMATOPATHOLOGY Routine 03/18/2018 12:0 0 AM DIE SIZER documented in this encounter Results * DERMATOPATHOLOGY (03/18/2018 12:00 AM DIE SIZER) Case Report Dermatopathology Report Case: [id number] Authorizing Provider: Pj Kumar MD Collected: 03/18/2018 12:00 AM Pathologist: Evelyne Garcia MD Received: 03/19/2018 06:50 AM Specimens: A) - Skin, left shoulder upper outer B) - Skin, right anterior mid breast C) - Skin, right upper back 10:54 AM [facility] Final Diagnosis Specimen A. SKIN, left shoulder upper outer: BASAL CELL CARCINOMA, INFILTRATIVE PATTERN (C44.619) Specimen B. SKIN, right anterior mid breast: DERMATOFIBROMA (D23.9) Specimen C. SKIN, right upper back: BASAL CELL CARCINOMA, SUPERFICIAL MULTIFOCAL (C44.519) 10:54 AM [facility] at [address] DIE [facility]ZER Clinical History A: R/O BCC. B: R/O BCC vs dermatofibroma. C: R/O BCC. 10:54 AM [facility] Gross Description Specimen A: Received is one formalin filled container labeled with the patient's name and designated left shoulder upper outer. The specimen consists of a shave biopsy measuring [id number]. Jar 0. Specimen B: Received is one formalin filled container labeled with the patient's name and designated right anterior mid breast. The specimen consists of a shave biopsy measuring [id number]. Jar 0. Specimen C: Received is one formalin filled container labeled with the patient's name and designated right upper back. The specimen consists of a shave biopsy measuring [id number]. Jar 0. 10:54 AM [facility] Microscopic Description Specimen A. [...] ratio and peripheral palisading. 8 10:54 AM [facility]ERMATOPATH[facility] Disclaimer An external and internal positive and negative controls are appropriate for the histochemical, immunohistochemical and immunofluorescence stain(s) in this case (if any), except where stated explicitly. The performance characteristics of the stain(s) cited in this report were developed and its performance characteristic determined by the Dermatopathology Laboratory at [facility]. These tests need not be, and therefore are not, approved by the [place] Food and Drug Administration. The tests are used for clinical purposes. Billing Codes Specimen Charges Stain Charges 43963 77946 69640 1 1 1 8 10:54 AM [facility] Embedded Images 8 10:54 AM [facility] Pathology/Cytology TISSUE SPECIMEN FROM SKIN / Unknown 03/18/2018 03/19/2018 6:50 AM DIE SIZER Miscellaneous samples (specimen) TISSUE SPECIMEN FROM SKIN / Unknown 03/18/2018 03/19/2018 6:50 AM DIE SIZER Miscellaneous samples (specimen) TISSUE SPECIMEN FROM SKIN / Unknown 03/18/2018 03/19/2018 6:50 AM DIE SIZER Pj Kumar MD LAB - PATHOLOGY/CYTOLOGY ORDERAB LES Final Result DERMATOPATHOLOGY LABORATORY [facility] - Department of Dermatology [address] [place] [address], [address] Floor Lab [address] [phone] documented in this encounter Visit Diagnoses Not on filedocumented in this encounter Care Teams Binding Nicker Relationship Specialty Start Date End Date Memo Camacho MD [address] [place] [id number] PCP - General Family Medicine 02/26/24 documented as of this encounter
--- OUTSIDE RECORDS SUMMARY | 2025-04-09 10:50 | XMS_ITS | Clinical Summary ---
Author Organization [facility] Address [address] [place] [address] Phone Care Team Providers Care Corporate Real Estate Specialist Name Role Phone Unavailable Primary Care Provider Unavailabl e Social History Tobacco Use Types Packs/Day Years Used Date Smoking Tobacco: Never Assessed Comments Unknown Sex and Gender Information Value Date Recorded Sex Assigned at Not on file Legal Sex Female 8:48 AM STORES CLERK Gender Identity Not on file Sexual Orientation Not on file Plan of Treatment Health Maintenance Due Date Last Done Comments Hepatitis C Virus (HCV) Screening 1961 Mammogram 1961 TdaP Immunization 1961 Pap Smear 1982 Cervical Cancer Screening (CCS) 11/27/1991 HPV/Cotest 11/27/1991 Cologuard 2006 Colonoscopy 2006 Colorectal Cancer Screening 2006 Immunochemical Fecal Occult Blood 2006 Pneumococcal Immunization (5 0+ years) (1 of 1 - PCV) 11/27/2011 Zoster Immunization (1 of 2) 11/27/2011 Influenza Immunization (#1) 2025 SARS-COV-2 Immunization ( - 2024- season) 2025 Respiratory Syncytial Virus (RSV) Immunization (Adult) (1 - 1-dose 75+ series) 2036 Hepatitis B Immunization Aged Out No longer eligible based on patient's age to complete this topic Human Papillomavirus (HPV) Immunization Aged Out No longer eligible b ased on patient's age to complete this topic Meningococcal Immunization (ACWY) Aged Out No longer eligible based on patient's age to complete this topic Rotavirus Immunization Aged Out No lo nger eligible based on patient's age to complete this topic
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
== END 2025-04-09 10:47 | disposition home or self-care (01) ==
PROVIDERS: PCP Family Medicine; Visit Provider Family Medicine
DX: J40 Bronchitis, not specified as acute or chronic (principal); M25.512 Pain in left shoulder; M16.0 Bilateral primary osteoarthritis of hip
CPT/HCPCS: 71046; 73030; 73521

== ENCOUNTER 2025-05-03 09:13 | Outpatient (CLI) | payer OTHER, SELFPAY ==
[2025-05-03 09:56] LABS: Hemoglobin A1C 5.4 % (<5.7)
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
--- OUTSIDE RECORDS SUMMARY | 2025-05-03 10:06 | XMS_ITS | Clinical Summary ---
Author Organization [facility] Address [address] [place] [address] Care Team Providers Care Manager Functional Name Role Phone Memo Camacho MD Primary Care Provider [phone] Memo Camacho MD Unavailable [phone] Tommy Kong MD Unavailable [phone] Allergies No known active allergies Medications ibuprofen [...] nasal spray daily as needed 2 Active bvcwudvqmoan-Jh-vc on-minerals tablet Take by mouth Active mupirocin [...] on file Legal Sex Female 2:53 PM MATERIAL EXPEDITOR Gender Identity Not on file Sexual Orientation Not on file Obstetrics History Para Term AB IAB SAB Ectopic Multiple Livin g Live Births 2 2 2 Date Outcome GA Total Labor Labor/2nd/3rd Weight Sex Type Anes PTL Lucille A1 A5 Name Clin Term Term Last Filed Vital Signs Vital Sign Reading Time Taken Comments Blood Pressure 145/97 05/26/2023 2:52 AM MATERIAL EXPEDITOR Pulse 68 05/26/2023 2:52 AM MATERIAL EXPEDITOR Temperature 35.3 C (95.6 F) 05/26/2023 1:10 AM MATERIAL EXPEDITOR Respiratory Rate 16 05/26/2023 2:52 AM MATERIAL EXPEDITOR Oxygen Saturation 98% 05/26/2023 2:52 AM MATERIAL EXPEDITOR Inhaled Oxygen Concentration - - Weight 86.6 kg (191 lb) 05/26/2023 1:07 AM MATERIAL EXPEDITOR Height 165.1 cm (5' 5) 05/26/2023 1:07 AM MATERIAL EXPEDITOR Body Mass Index 31.78 05/26/2023 1:07 AM MATERIAL EXPEDITOR Plan of Treatment Health Maintenance Due Date [...] history exists Medical Devices Implanted Type Area Radiology Equipment Servicer Device Identifier Shelf Expiration Date Model / Serial / Lot Hello! Messenger Angio-Seal Vip 6fr Closere Device [id number] - [id number] Implanted:Qty: 1 on 06/14/2022 at [facility] [employer] [facility] 02/09/2023 [id number] / / [id number] Procedures Procedure Name Priority Date/Time Associated Diagnosis [...] Most Recently Relevant to Health Maintenance [facility] Address: [address] [place] [address] Advance Directives For more information, please contact: [phone] * Full Code (Latest Code Status on File) Date Activated Date Inactivated Comments 06/14/2022 7:53 AM 06/15/2022 4:55 AM Care Teams Manager Functional Relationship Specialty Start Date End Date Memo Camacho MD PCP - General Family Medicine 05/26/23 Memo Camacho MD 05/26/23 [place] [address] [place] [address] Consulting Physician Obstetrics and Gynecology 12/21/21
--- OUTSIDE RECORDS SUMMARY | 2025-05-03 10:06 | XMS_ITS | Clinical Summary ---
Author Organization [facility] Address [address] [place] [address] Phone Care Team Providers Care Instructor Trainer Canine Service Name Role Phone Unavailable Primary Care Provider Unavailabl e Social History Tobacco Use Types Packs/Day Years Used Date Smoking Tobacco: Never Assessed Comments Unknown Sex and Gender Information Value Date Recorded Sex Assigned at Not on file Legal Sex Female 8:48 AM PUBLICATIONS EDITOR Gender Identity Not on file Sexual Orientation [...]
--- OUTSIDE RECORDS SUMMARY | 2025-05-03 10:06 | XMS_ITS | Encounter Summary ---
Author Organization [facility] Address [address] [place] [address] Care Team Providers Care Credit Department Manager Name Role Phone Memo Camacho MD Primary Care Provider [phone] Encounter Details Date Type Department Care Team (Late st Contact Info) Description 01/08/2011 [facility] Outpatient Visit [place]TERNAL [place] [address] [address] Social History Tobacco Use Types Packs/Day Years Used Date Smoking Tobacco: Every Day Cigarettes 0.5 32 Alcohol Use Standard Drinks/Week Comments No 0 (1 standard drink = 0.6 oz pur e alcohol) Comments No Sex and Gender Information Value Date Recorded Sex Assigned at Not on file Legal Sex Female 6:09 AM TAXATION AGENT Gender Identity Not on file Sexual Orientation Not on file documented as of this encounter Plan of Treatment Not on file documented as of this encounter Visit Diagnoses Not on filedocumented in this encounter Care Teams Credit Department Manager Relationship Specialty Start Date End Date Memo Camacho MD [address] [place] [address] PCP - General Family Medicine 02/26/24 documented as of this encounter
--- OUTSIDE RECORDS SUMMARY | 2025-05-03 10:06 | XMS_ITS | Encounter Summary ---
Author Organization [facility] Address [address] [place] [address] Care Team Providers Care Store Stocker Name Role Phone Memo Camacho MD Primary Care Provider [phone] Encounter Details Date Type Department Care Team (Late st Contact Info) Description 03/19/2018 Lab Requisition [facility] Care DermPath Lab [address] [place] [address] Pj Kumar MD [address] [address] Social History Tobacco Use Types Packs/Day Years Used Date Smoking Tobacco: Every Day Cigarettes 0.5 32 Alcohol Use Standard Drinks/Week Comments No 0 (1 standard drink = 0.6 oz pur e alcohol) Comments No Sex and Gender Information Value Date Recorded Sex Assigned at Not on file Legal Sex Female 6:09 AM TOUR AGENT Gender Identity Not on file Sexual Orientation Not on file documented as of this encounter Plan of Treatment Not on file documented as of this encounter Procedures Procedure Name Priority Date/Time Associated Diagnosis Comments DERMATOPATHOLOGY Routine 03/18/2018 12:0 0 AM TOUR AGENT documented in this encounter Results * DERMATOPATHOLOGY (03/18/2018 12:00 AM TOUR AGENT) Case Report Dermatopathology Report Case: [id number] Authorizing Provider: Pj Kumar MD Collected: 03/18/2018 12:00 AM Pathologist: Evelyne Garcia MD Received: 03/19/2018 06:50 AM Specimens: A) - Skin, left shoulder upper outer B) - Skin, right anterior mid breast C) - Skin, right upper back 10:54 AM [facility] Final Diagnosis Specimen A. SKIN, left shoulder upper outer: BASAL CELL CARCINOMA, INFILTRATIVE PATTERN (C44.619) Specimen B. SKIN, right anterior mid breast: DERMATOFIBROMA (D23.9) Specimen C. SKIN, right upper back: BASAL CELL CARCINOMA, SUPERFICIAL MULTIFOCAL (C44.519) 10:54 AM [facility] D[facility]MAT[facility] at [address] TOUR AGENT Clinical History A: R/O BCC. B: R/O BCC vs dermatofibroma. C: R/O BCC. 10:54 AM [facility] Gross Description Specimen A: Received is one formalin filled container labeled with the patient's name and designated left shoulder upper outer. The specimen consists of a shave biopsy measuring [id number]. Jar 0. Specimen B: Received is one formalin filled container labeled with the patient's name and designated right anterior mid breast. The specimen consists of a shave biopsy measuring [id number]. Jar 0. Specimen C: Received is one formalin filled container labeled with the patient's name and designated right upper back. The specimen consists of a shave biopsy measuring [id number]. Jar 0. 10:54 AM [facility] Microscopic Description Specimen A. SKIN, [...] ratio and peripheral palisading. 8 10:54 AM TOUR AGENT DERMATOPATHOLOGY LABORATORY Disclaimer An external and internal positive and negative controls are appropriate for the histochemical, immunohistochemical and immunofluorescence stain(s) in this case (if any), except where stated explicitly. The performance characteristics of the stain(s) cited in this report were developed and its performance characteristic determined by the Dermatopathology Laboratory at [facility]. These tests need not be, and therefore are not, approved by the [place] Food and Drug Administration. The tests are used for clinical purposes. Billing Codes Specimen Charges Stain Charges 58616 98816 85794 1 1 1 8 10:54 AM TOUR AGENT DERMATOPATHOLOGY LABORATORY Embedded Images 8 10:54 AM TOUR AGENT DERMATOPATHOLOGY LABORATORY Pathology/Cytology TISSUE SPECIMEN FROM SKIN / Unknown 03/18/2018 03/19/2018 6:50 AM TOUR AGENT Miscellaneous samples (specimen) TISSUE SPECIMEN FROM SKIN / Unknown 03/18/2018 03/19/2018 6:50 AM TOUR AGENT Miscellaneous samples (specimen) TISSUE SPECIMEN FROM SKIN / Unknown 03/18/2018 03/19/2018 6:50 AM TOUR AGENT Pj Kumar MD LAB - PATHOLOGY/CYTOLOGY ORDERAB LES Final Result DERMATOPATHOLOGY LABORATORY [facility] - Department of Dermatology [address] [place] [address], [address] Floor Lab [address] [phone] documented in this encounter Visit Diagnoses Not on filedocumented in this encounter Care Teams Store Stocker Relationship Specialty Start Date End Date Memo Camacho MD [address] [place] [id number] PCP - General Family Medicine 02/26/24 documented as of this encounter
--- OUTSIDE RECORDS SUMMARY | 2025-05-03 10:06 | XMS_ITS | Clinical Summary ---
Author Organization [facility] Address [address] [place] [address] Care Team Providers Care Stock Patcher Name Role Phone Memo Camacho MD Primary Care Provider [phone] Source Comments [facility],non-owned Affiliates and Associated Physician Practices is amultiple site organization consisting of ambulatory clinics and hospital sitesin [place], [place], [place] and [place]. This disclosure is being madepursuant to the Care Everywhere program and may not contain all information available regarding this patient. Last updated 18.[facility] Allergies No known active allergies Medications * [...] and heating? Not hard at all 03/05/2024 [facility] [place] of Occupat ional Health - Occupational Stress [...] any time in the past 12 m [facility], were you homeless or living in a prison (including now)? No 03/05/2024 Comments No Sex and Gender Information Value Date Recorded Sex Assigned at Not on file Legal Sex Female 6:09 AM YARD JACKER Gender Identity Not on file Sexual Orientation Not on file Last Filed Vital Signs Vital Sign Reading Time Taken Comments Blood Pressure 147/88 09/04/2024 3:49 PM CDT Pulse 60 09/04/2024 3:49 PM CDT Temperature 36.7 C (98 F) 09/04/2024 3:49 PM CDT Respiratory Rate 18 03/18/2024 2:12 PM YARD JACKER Oxygen Saturation 94% 03/18/2024 2:1 2 PM YARD JACKER Inhaled Oxygen Concentration - - Weight 69.4 [...] ZOSTER VACCINE (1 of 2) 11/27/2011 PAP with HPV 10/11/2022 10/11/2017, 10/12, 11/03/2012 DEPRESSION SCREENING 05/13/2024 COVID-19 VACCINE (3 - season) 2025 03/16/2021, 07/15/2020 INFLUENZA VACCINE (#1) 2025 MAMMOGRAM 02/18/2026 02/19/2024, 100 01/2024, 01/10/2023, Additional history exists SCREENING FOR [...] PANEL (CALCIUM TOTAL) Routine 03/19/2024 4:06 AM YARD JACKER MAMMOGRAM 01/03/2022 PAP IG LB +HPV APTIMA REFLEX 16,18/45 Routine 10/11/2017 1:09 PM CDT Well female exam with routine gynecological exam Special screening examination for human papillomavirus (HPV) from Last 3 Months or Most Recently Relevant to Health Maintenance Results * (ABNORMAL) BASIC METABOLIC PANEL (CALCIUM TOTAL) (03/19/2024 4:06 AM YARD JACKER) Glucose 90 70 - 99 mg/dL 03/19/2024 6:34 AM [facility] Sodium 143 136 - 145 mmol/L 03/19/2024 6:34 AM [facility] Potassium 3.8 3.5 - 5.1 mmol/L 03/19/2024 6:34 AM [facility] Chloride 110(H) 98 - 107 mmol/L 03/19/2024 6:34 AM [facility] CO2 25 22 - 29 mmol/L 03/19/2024 6:34 AM [facility] Calcium 9.5 8.4 - 10.4 mg/dL 03/19/2024 6:34 AM [facility] Anion Gap 8 6 - 16 mmol/L 03/19/2024 6:34 AM [facility] BUN 18 7 - 26 mg/dL 03/19/2024 6:34 AM [facility] Creatinine 0.79 0.57 - 1.11 mg/dL 03/19/2024 6:34 AM [facility] eGFR by CKD-EPI 85(L) >=90 mL/min/1.7 3 m2 03/19/2024 6:34 AM [facility] Blood BLOOD SPECIMEN / Unknown Lab Venipuncture / Unknown 03/19/2024 4:06 AM YARD JACKER 03/19/2024 6:01 AM YARD JACKER Ted Villalpando MD LAB - CHEMISTRY ORDERABLES Final Result [facility] [address] [place] [address] * MAMMOGRAM (01/03/2022) Anatomical Region Laterality Modality [...] Z11.51 Performed by [facility] ACCOUNT BILL Comment:Diamond Monzon, Cyto technologist (ASCP) Electronically Signed by [facility] [...] containers..01 ThinPrep Vial Resulting Agency Comment [facility] [place] [address] [facility] [place] [phone] us Tommy Kong MD LAB - PATHOLOGY/CYTOLOGY OR DERABLES Final Result [facility] ACCOUNT BILL [address] [place] [address] from Last 3 Months or Most Recently Relevant to Health Maintenance Insurance MEDICAID - [place] Advance Directives * Full Code (Latest Code Status on File) Date Activated Date Inactivated Comments 03/06/2024 3:46 PM 03/19/2024 1:32 PM * Full Code Date Activated Date Inactivated Comments 02/27/2024 9:08 AM 03/06/2024 3:40 PM Care Teams Stock Patcher Relationship Specialty Start Date End Date Memo Camacho MD [address] [place] [address] PCP - General Family Medicine 02/26/24
[2025-05-03 10:07] LABS: CRP 0.7 mg/dL (<1.0); Creatine Kinase 65 U/L (30-135)
[2025-05-03 11:16] LABS: Vitamin B12 533.0 pg/mL (239-931)
[2025-05-04 11:08] LABS: Anti-CCP Ab, IgG/IgA 9 units (0-19)
[2025-05-04 13:08] LABS: ANA by IFA Rfx Titer/Pattern Negative (.)
[2025-05-08 04:06] LABS: Vit. B1, Whole Blood 121.5 nmol/L (66.5-200.0)
[2025-05-10 12:08] LABS: Immunoglobulin A, Qn 288 mg/dL (87-352); Immunoglobulin G, Qn 1097 mg/dL (586-1602); Immunoglobulin M, Qn 205 mg/dL (26-217)
== END 2025-05-03 09:14 | disposition home or self-care (01) ==
PROVIDERS: PCP Family Medicine; Visit Provider Psychiatry & Neurology Neurology
DX: G62.9 Polyneuropathy, unspecified (principal); G95.9 Disease of spinal cord, unspecified; Z72.0 Tobacco use; I73.9 Peripheral vascular disease, unspecified; M54.16 Radiculopathy, lumbar region; R27.0 Ataxia, unspecified; M79.601 Pain in right arm; M79.602 Pain in left arm
CPT/HCPCS: 36415; 82550; 82607; 82746; 82784; 83036; 83090; 84425; 86038; 86140; 86200; 86334; 86431